=== PATIENT | female | born 1965 | race Caucasian/White ===

== ENCOUNTER → 2017-06-28 | Outpatient (CLI) | payer OTHER | LOC: CARD 14:22 | PROVIDERS: ATTEND Neurological Surgery | DX: I65.22 Occlusion and stenosis of left carotid artery (principal) | CPT/HCPCS: 93880 ==

== ENCOUNTER → 2017-07-21 | Outpatient (CLI) | payer OTHER ==
--- NOTE | 2017-07-23 09:00 | Diagnostic Imaging Report ---
Examination: MRI BRAIN WITHOUT CONTRAST History: Right arm and finger numbness. New onset headaches. Comparison studies: None Technique: Sagittal T2; axial DWI, FLAIR, GRE or SWI, T1, Coronal FLAIR. Intravenous contrast: None Findings: Scalp: No abnormal signal. No masses. Bone marrow: Normal in signal intensity. Brain volume: Adequate for age. No volume loss. Ventricles: Normal in size and configuration. No hydrocephalus. Extra-axial spaces: No abnormalities. Parenchyma: There are patchy areas of T2/FLAIR hyperintensity in the periventricular and subcortical white matter and more confluent area in the pontine white matter, nonspecific. A chronic lacunar infarct is demonstrated in the left centrum semiovale. No masses, hemorrhage, or acute vascular insults. Suprasellar and sellar region: No abnormalities. Craniocervical junction: No abnormalities. The foramen magnum is patent. No Chiari malformations. Vessels: Normal flow-voids in the arteries and sinuses. Additional findings:None. IMPRESSION: 1. No acute intracranial abnormal. 2. Mild chronic microvascular ischemic change. 3. Chronic lacunar infarct in the left centrum semiovale. Signed by: Dr. Shirley Azul M.D. on 07/23/2017 8:57 AM
== END ==
LOC: MRI 14:09
PROVIDERS: ATTEND Neurological Surgery
DX: I63.9 Cerebral infarction, unspecified (principal)
CPT/HCPCS: 70551

== ENCOUNTER → 2017-10-02 | Day surgery (SDC) | payer OTHER ==
[2017-09-28 13:12] LABS: BASOPHILS % 0.2 % (0.0-1.0); EOSINOPHILS % 0.2 % (0.0-6.0); HEMATOCRIT 37.4 % (34.2-44.1); HEMOGLOBIN 12.1 g/dL (12.0-16.0); LYMPHOCYTES # (AUTO) 2.7 (1.0-3.2); LYMPHOCYTES % 28.3 % (18.0-39.1); MEAN CORPUSCULAR HEMOGLOBIN 26.3 pg (28-32); MEAN CORPUSCULAR HGB CONC 32.4 g/dL (31-35); MEAN CORPUSCULAR VOLUME 81.3 fL (81-99); MONOCYTES # (AUTO) 0.6 (0.2-0.8); MONOCYTES % 6.2 % (4.4-11.3); NEUTROPHILS # (AUTO) 6.1 (2.1-6.9); NEUTROPHILS % 64.6 % (38.7-80.0); PLATELET COUNT 156 x10e3/uL (140-360); RED CELL DISTRIBUTION WIDTH 15.4 % (11.7-14.4)
--- NOTE | 2017-09-29 13:00 | Diagnostic Imaging Report ---
PROCEDURE: X-RAY CHEST, TWO VIEWS COMPARISON: None. INDICATIONS: PREOPERATIVE CHEST XRAY FOR COLON SURGERY FINDINGS: LUNGS: No consolidations or edema. PLEURA: No effusions or pneumothorax. HEART \T\ MEDIASTINUM: The heart is within normal size-limits. Tortuosity and atherosclerotic calcification of the thoracic aorta. Hazy opacity along the left heart border likely reflects prominent epicardial fat. BONES \T\ SOFT TISSUES: No acute findings. CONCLUSION: No acute cardiopulmonary abnormality. Dictated by: Jurgen Echevarria M.D. on 09/29/2017 at 13:03 Electronically approved by: Jurgen Echevarria M.D. on 09/29/2017 at 13:03
[~2017-10-02] MED LIST: ALLOPURINOL300 MG PO; ALOGLIPTIN PO; ASPIRIN325 MG PO; CLONAZEPAM0.5 MG PO; CLOPIDOGREL75 MG PO; FENTANYL CITRATE/PF 100MCG/2 ML INJ ONE; FOLIC ACID1 MG PO; HYDROXYZINE HCL25 MG PO; HYOSCYAMINE SULFATE 0.5 MG/ML AMP ONE; LEVEMIR100 UNIT/1 SQ; LIDOCAINE HCL 2% LOCAL INJ 5 ML SDV VIAL INJ ONE; LISINOPRIL10 MG PO; METFORMIN HCL500 MG PO; METOPROLOL TART50 MG PO; MIDAZOLAM HCL 2 MG/2 ML VIAL ONE; NEXIUM OTC PO; NOVOLOG MI100 UNIT/1 SQ; PAROXETINE HCL20 MG PO; PROAIR HFA INH8.5 GM INH; PROPOFOL IV EMULSION 10 MG/ML 50 ML VIAL ONE; SPIRONOLACTONE25 MG PO; VITAMIN B-121000 MCG PO
--- OUTSIDE RECORDS SUMMARY | 2017-10-02 06:06 | XMS REPORT | Clinical Summary ---
Author Author [facility] Organization [facility] Address Unknown Phone Unavailable Care Team Providers Care Packaging Engineer Name Role Phone Deven Arguello MD PCP Allergies Active Allergy Reactions Severity Noted Date Comments Adhesive Tape-Silicones Dermatitis, Rash Medium 01/11/2017 Isosorbide 04/11/2017 Current Medications Prescription Sig. Disp. Refills Start End Date Status Date alendronate (FOSAMAX) 70 TAKE 1 TABLET ONCE A WEEK 1 11/13/19 Active MG tablet ON EMPTY STOMACH WITH 8 17 OZ OF WATER AND REMAIN UPRIGHT FOR 30 MINUTES.pt takes on allopurinol (ZYLOPRIM) Take 300 mg by mouth once 2 11/13/19 Active 300 MG tablet daily. 17 clopidogrel (PLAVIX) 75 Take 75 mg by mouth once 2 12/31/19 Active mg tablet daily. 17 metFORMIN (GLUCOPHAGE) Take 1,000 mg by mouth 2 2 12/09/19 Active 1,000 mg tablet (two) times a day with 17 meals. metoprolol tartrate Take 200 mg by mouth 2 2 10/21/19 Active (LOPRESSOR) 100 mg tablet (two) times a day. 17 PARoxetine (PAXIL) 20 MG Take 20 mg by mouth once 2 12/31/19 Active tablet daily. 17 spironolactone Take 25 mg by mouth once 2 11/13/19 Active (ALDACTONE) 25 MG tablet daily. 17 aspirin (ECOTRIN) 81 MG Take 81 mg by mouth Active enteric coated tablet daily. lisinopril Take 10 mg by mouth Active (PRINIVIL,ZESTRIL) 10 mg daily. tablet clonAZEPAM (KlonoPIN) 0.5 Take 0.5 mg by mouth 2 Active MG tablet (two) times a day as needed for seizures. cyanocobalamin, vitamin Place 1 tablet under the Active B-12, (VITAMIN B-12) tongue daily. 1,000 mcg tablet, sublingual insulin DETEMIR (LEVEMIR Inject 100 Units under Active FLEXTOUCH U-100 INSULN) the skin nightly. 100 unit/mL (3 mL) insulin pen folic acid (FOLVITE) 1 MG Take 1 mg by mouth daily. Active tablet albuterol (PROAIR Inhale 2 puffs every 6 Active HFA,PROVENTIL (six) hours as needed for HFA,VENTOLIN HFA) 90 wheezing. mcg/actuation inhaler esomeprazole (NexIUM) 20 Take 20 mg by mouth daily Active MG capsule before breakfast. alogliptin 12.5 mg tablet Take 1 tablet by mouth Active daily. fluticasone (FLONASE) 50 2 sprays by Each Nare Active mcg/actuation nasal spray route daily. amLODIPine (NORVASC) 5 mg Take 5 mg by mouth once 3 12/31/19 Discontin tablet daily. 17 18 ued atorvastatin (LIPITOR) 40 Take 40 mg by mouth 1 11/13/19 02/01/20 Discontin MG tablet nightly. 17 17 ued glipiZIDE (GLUCOTROL) 10 TAKE 1 TABLET BY MOUTH 2 11/13/19 08/24/19 Discontin MG tablet TWICE A DAY BEFORE MEALS. 17 18 ued pantoprazole (PROTONIX) Take 40 mg by mouth 02/01/20 Discontin 40 MG EC tablet daily. 17 ued insulin GLARGINE (LANTUS) Inject 50 Units under the 08/24/19 Discontin 100 unit/mL injection skin nightly. 18 ued (vial) gemfibrozil (LOPID) 600 Take 600 mg by mouth 2 08/24/19 Discontin MG tablet (two) times a day before 18 ued meals. lisinopril Take 20 mg by mouth 08/24/19 Discontin (PRINIVIL,ZESTRIL) 20 mg daily. 18 ued tablet clonAZEPAM (KlonoPIN) 0.5 Take 0.5 mg by mouth 02/03/20 Discontin MG tablet nightly as needed for 17 ued anxiety or seizures. nicotine (NICODERM CQ) 14 Place 1 patch on the skin 30 patch 0 03/04/20 mg/24 hr daily for 30 days. 17 17 Active Problems Problem Noted Date Chest pain 01/31/2017 Encounters Date Type Specialty Care Team Description 08/29/2017 Telephone Gastroenterology Stephani Mitchell MD 08/23/2017 Emergency General Internal Medicine Jerry Villarreal MD Chest pain, unspecified - Jamie Perez MD type (Primary Dx); 08/26/2017 Deven Agruello MD Dyspnea, unspecified type; Generalized abdominal pain 02/01/2017 Orders Only Radiology Lala, Loyaz 01/31/2017 Emergency General Internal Medicine Matt Davis, Chest pain, unspecified - type (Primary Dx) 02/02/2017 Deven Arguello MD 01/11/2017 Emergency Emergency Medicine Jamie Perez MD Transient cerebral ischemia, unspecified type (Primary Dx) 01/11/2017 Procedure Pass Emergency Medicine after 10/01/2016 Immunizations Name Dates Previously Given Next Due FLUCELVAX QUAD PF (0.5mL 02/02/2017 syringe) Social History Tobacco Use Types Packs/Day Years Used Date Current Every Day Smoker Cigarettes 0.5 Tobacco Cessation: Ready to Quit: No Alcohol Use Drinks/Week oz/Week Comments No Sex Assigned at Date Recorded Not on file Last Filed Vital Signs Vital Sign Reading Time Taken Blood Pressure 145/75 08/26/2017 7:55 AM CDT Pulse 75 08/26/2017 7:55 AM CDT Temperature 36.1 C (97 F) 08/26/2017 7:55 AM CDT Respiratory Rate 19 08/26/2017 7:55 AM CDT Oxygen Saturation 97% 08/26/2017 7:55 AM CDT Inhaled Oxygen - - Concentration Weight 102 kg (223 lb 12.8 oz) 08/23/2017 3:01 PM CDT Height 162.6 cm (5' 4") 08/23/2017 3:01 PM CDT Body Mass Index 38.42 08/23/2017 3:01 PM CDT Plan of Treatment Health Maintenance Due Date Last Done Comments CERVICAL CANCER SCREENING 1986 BREAST CANCER SCREENING 11/21/2015 COLON CANCER SCREENING 11/21/2015 SHINGRIX VACCINE (#1) 11/21/2015 INFLUENZA VACCINE 11/29/2017 02/02/2017 Procedures Procedure Name Priority Date/Time Associated Diagnosis Comments ECHOCARDIOGRAM 2D Routine 08/24/2017 Results for this COMPLETE W MMODE SPECTRAL 8:28 AM CDT procedure are in the [facility]OR [facility]ER (92005) results section. CV STRESS TEST NUCLEAR Routine 02/02/2017 Results for this CARDIO 1:22 PM CDT procedure are in the results section. ECHOCARDIOGRAM 2D Routine 02/01/2017 Results for this COMPLETE W MMODE SPECTRAL 3:36 PM CDT procedure are in the COLOR DOPPLER (84384) results section. after 10/01/2016 Results * POC glucose (08/26/2017 6:40 AM) Only the most recent of 19 results within the time period is included. Component Value Ref Range POC glucose 224 (H) 65 - 100 mg/dL Comment: Meter ID: [id number] Interdisciplinary Professor: Melly Grant Specimen Performing Laboratory [facility] [address] [place] [address] * Estimated GFR (08/26/2017 5:06 AM) Only the most recent of 9 results within the time period is included. Component Value Ref Range GFR Non Af Amer 66 mL/min/1.73 m2 GFR Af Amer 80 mL/min/1.73 m2 Comment: Chronic kidney disease: <60 mL/min/1.73m2 Kidney failure: <15 mL/min/1.73m2 The estimated GFR is calculated from the IDMS-traceable Modification of Diet in Renal Disease Equation. The accuracy of the calculation is poor when the creatinine is normal. Calculated values >90 mL/min/1.73m2 are not reported. This equation has not been validated in children (<18 years), women, the elderly (>70 years), or ethnic groups other than Caucasians and Americans. Specimen Performing Laboratory Plasma specimen [facility] [address] [place] [address] * CBC with platelet and differential (08/26/2017 5:06 AM) Only the most recent of 9 results within the time period is included. Component Value Ref Range WBC 8.3 4.2 - 11.0 k/uL RBC 4.40 4.04 - 5.86 m/uL HGB 11.6 11.5 - 15.3 g/dL HCT 37.5 34.0 - 45.0 % MCV 85.2 80.0 - 98.0 fL MCH 26.4 (L) 27.0 - 34.0 pg MCHC 30.9 (L) 31.5 - 36.5 g/dL RDW - SD 45.1 37.0 - 51.0 fL MPV 13.9 (H) 7.4 - 10.4 fL Platelet count 143 (L) 150 - 400 k/uL Nucleated RBC 0.00 /100 WBC Neutrophils 65.0 36.0 - 66.0 % Lymphocytes 27.0 24.0 - 44.0 % Monocytes 7.1 (H) 0.0 - 6.0 % Eosinophils 0.2 0.0 - 6.0 % Basophils 0.2 0.0 - 1.2 % Immature granulocytes 0.5 0.0 - 1.0 % Specimen Performing Laboratory Blood [facility] [address] [place] [address] * Basic metabolic panel (08/26/2017 5:06 AM) Only the most recent of 3 results within the time period is included. Component Value Ref Range Sodium 137 135 - 150 mEq/L Potassium 4.4 3.5 - 5.0 mEq/L Chloride 101 100 - 109 mEq/L CO2 30 24 - 32 mmol/L Anion gap 6 (L) 7 - 15 mEq/L Comment: Starting from July , anion gap calculation no longer incorporates potassium. Please note the change. BUN 16 7 - 18 mg/dL Creatinine 0.9 0.8 - 1.5 mg/dL Glucose 180 (H) 65 - 100 mg/dL Calcium 8.9 8.6 - 10.7 mg/dL Specimen Performing Laboratory Plasma specimen [facility] [place] [address] * CT Abdomen Pelvis W Contrast (08/25/2017 9:14 PM) Specimen Performing Laboratory [facility] [address] [place] [address] Narrative Examination:CT ABDOMEN PELVIS W CONTRAST Clinical History: abdominal pain Comparison: None. Findings: CT scans are performed using radiation dose reduction techniques.Technical factors are evaluated and adjusted to ensure appropriate moderation of exposure. Automated dose management technology is applied to adjust radiation exposure while achieving a diagnostic quality image. CT scan of the abdomen and pelvis was performed after intravenous contrast. The liver, spleen, pancreas, and adrenal glands are unremarkable. The patient is status post cholecystectomy. The kidneys are within normal limits without hydronephrosis. There is bowel wall thickening noted of the rectosigmoid colon, descending colon , and splenic flexure. No fat stranding is seen. The appendix is not visualized. No small bowel distention is seen. Colonic diverticulosis is seen. Mild anterior abdominal wall subcutaneous varices and mild fat stranding is noted. No free air or fluid is seen. Urinary bladder is unremarkable. The visualized lung bases show mild dependent atelectasis. IMPRESSION: 1. Diffuse bowel wall thickening involving the splenic flexure, descending colon , and rectosigmoid colon most suspicious for colitis. 2. Some mild subcutaneous varices and mild fat stranding in the anterior abdominal and pelvic wall. This is similar to that of the prior study. [id number] Procedure Note [facility], Radiology Results Incoming - 08/25/2017 9:27 PM CDT Examination: CT ABDOMEN PELVIS W CONTRAST Clinical History: abdominal pain Comparison: None. Findings: CT scans are performed using radiation dose reduction techniques. Technical factors are evaluated and adjusted to ensure appropriate moderation of exposure. Automated dose management technology is applied to adjust radiation exposure while achieving a diagnostic quality image. CT scan of the abdomen and pelvis was performed after intravenous contrast. The liver, spleen, pancreas, and adrenal glands are unremarkable. The patient is status post cholecystectomy. The kidneys are within normal limits without hydronephrosis. There is bowel wall thickening noted of the rectosigmoid colon, descending colon , and splenic flexure. No fat stranding is seen. The appendix is not visualized. No small bowel distention is seen. Colonic diverticulosis is seen. Mild anterior abdominal wall subcutaneous varices and mild fat stranding is noted. No free air or fluid is seen. Urinary bladder is unremarkable. The visualized lung bases show mild dependent atelectasis. IMPRESSION: 1. Diffuse bowel wall thickening involving the splenic flexure, descending colon, and rectosigmoid colon most suspicious for colitis. 2. Some mild subcutaneous varices and mild fat stranding in the anterior abdominal and pelvic wall. This is similar to that of the prior study. [id number] * Lipase level (08/25/2017 5:08 AM) Only the most recent of 3 results within the time period is included. Component Value Ref Range Lipase 480 (H) 65 - 230 U/L Specimen Performing Laboratory Plasma specimen [facility] [address] [place] [address] * Echocardiogram complete w contrast and 3D if needed (08/24/2017 8:28 AM) Component Value Ref Range Ao Root Diameter 2.69 cm AoV Area, Vmax 2.35 cm2 AoV Area, VTI 2.38 cm2 AoV Mean PG 5.47 mmHg AoV Peak PG 11.73 mmHg AoV Vmax 1.81 m/s AoV VTI 0.33 m IVS,d 1.02 0.6 - 1.2 cm IVS/LVPW,2D 1.02 Left Atrium Dimension 4.64 cm Anterior LV,d 4.93 cm LV EF,2D 62.61 % LV,s 3.55 cm LVOT area 3.49 cm2 LVOT Diam,S 2.11 cm LVOT Vmax 1.15 m/s LVOT VTI 0.25 m LVPWD,d 1.00 cm TR Vpeak 1.50 mm/s MV E A ratio 1.20 mmHg TR pk grad 9.05 mmHg MR Vmax 4.76 m/s E wave decelartion time 219.92 msec MV Peak A Erasmo 1.26 m/s MV valve area p 1/2 3.45 cm2 method MV Peak E Erasmo 1.50 m/s MV stenosis pressure 1/2 63.78 ms time AV LVOT peak gradient 5.31 mmHg Ao Root Diameter 2.69 cm MV mean gradient 5.14 mmHg LV SYS VOL 52.72 ml LV RUSSO VOL 114.49 ml LV SV Teich 2D 61.77 ml LV Vol s Teich PSAX 52.72 ml LVOT CO 5.72 l/min LVOT HR for LVOT CO 66.31 bpm MR peak grad 12.32 mmHg MV Vmax 1.76 m MV VTI Tips 0.48 m AoV Vmn 1.09 IVS s 2D 1.21 LV FS Teich 2D 27.96 MV AE ratio 0.84 LV FS Cube 2D 27.96 LVOT Vmn 0.79 Aov area Vmn 2.40 cm2 LVOT mean grad 2.77 mmHg MAX Pred HR 168.24 85 of MPHR 143.00 Calc MPHR 168.24 bpm IVS pct thck PLAX 19.15 % LV SV Cube 2D 75.07 ml LV vol d cube 2D 119.90 ml LV vol s cube 2D 44.83 ml LVPW pct thck PLAX 40.24 % LVPW s PLAX 1.40 cm MV Decel slope 6.84 m/s2 Pred Exer Dur R1 8.80 Pred METS R1 7.97 Velocity Ratio (V1/V2) 0.64 m/s EF 53.95 % E/A ratio 1.19 Specimen Performing Laboratory [facility] [address] [place] [address] Narrative There is mild left ventricular concentric hypertrophy. Left Ventricular ejection fraction is 50 - 55%. Left atrium size is mildly dilated. No pericardial effusion There is severe sclerosis of the aortic valve leaflets. The mitral valve appears thickened. There is mild mitral valve regurgitation. Spectral Doppler shows impaired relaxation pattern of left ventricular diastolic filling. Trace aortic regurgitation. * Troponin (08/24/2017 5:22 AM) Only the most recent of 12 results within the time period is included. Component Value Ref Range Troponin <0.01 0.00 - 0.60 ng/mL Comment: 0.11 - 1.49 ng/ml May indicate increased risk of acute coronary syndrome. >=1.5 ng/ml Consistent with acute myocardial infarction. The diagnostic value of a single normal or non-diagnostic result is questionable. Serial samples at 2-6 hour intervals are required to rule out acute myocardial injury. Specimen Performing Laboratory Plasma specimen [facility] [address] [place] [place] [address] * Comprehensive metabolic panel (08/24/2017 5:22 AM) Only the most recent of 6 results within the time period is included. Component Value Ref Range Sodium 136 135 - 150 mEq/L Potassium 4.4 3.5 - 5.0 mEq/L Chloride 104 100 - 109 mEq/L CO2 23 (L) 24 - 32 mmol/L Anion gap 9 7 - 15 mEq/L Comment: Starting from July , anion gap calculation no longer incorporates potassium. Please note the change. BUN 13 7 - 18 mg/dL Creatinine 0.8 0.8 - 1.5 mg/dL Glucose 366 (H) 65 - 100 mg/dL Calcium 8.8 8.6 - 10.7 mg/dL Protein 6.7 6.3 - 8.2 g/dL Albumin 2.7 (L) 3.2 - 5.0 g/dL A/G ratio 0.7 0.7 - 3.8 Alkaline phosphatase 145 (H) 30 - 120 U/L AST 18 15 - 37 U/L ALT 19 (L) 30 - 65 U/L Total bilirubin 0.3 0.2 - 1.2 mg/dL Specimen Performing Laboratory Plasma specimen [facility] [address] [place] [address]. [place] [address] * Partial thromboplastin time, activated (08/24/2017 2:06 AM) Only the most recent of 4 results within the time period is included. Component Value Ref Range PTT 29.7 23.0 - 36.0 sec Comment: PTT therapeutic range for unfractionated heparin is 61.0-112.0 seconds which corresponds to Anti-Xa 0.3-0.7 U/ml. Note: Change in Panic Value The PTT Panic Value is changing from 110 sec. to 100 sec. due to new instrumentation and reagents. Correlation studies have been performed to validate this result. Specimen Performing Laboratory Blood [facility] [address] [place] [address]. [place] [id number] * Prothrombin time with INR (08/24/2017 2:06 AM) Only the most recent of 5 results within the time period is included. Component Value Ref Range Prothrombin time 12.9 12.0 - 15.0 sec INR 0.96 0.92 - 1.12 Comment: For patients on anticoagulant therapy, reference ranges below: Indication: INR Value Treatment of Venous Thrombosis, 2.0-3.0 pulmonary emboli, or prophylaxis of a venous thrombosis, or systemic emboli. High dose, high risk patients 3.0-4.5 with mechanical valves. NOTE: INR values over 3.0 are sometimes associated with gastrointestinal hemorrhage, especially values over 4.0. Specimen Performing Laboratory Blood [facility] [address] [place] [address]. [place] [address] * T3, free (08/24/2017 2:06 AM) Only the most recent of 2 results within the time period is included. Component Value Ref Range T3, free 2.56 2.18 - 3.98 pmol/L Specimen Performing Laboratory Plasma specimen [facility] [address] [place] [address]. [place] [address] * Thyroid stimulating hormone (08/24/2017 2:06 AM) Only the most recent of 2 results within the time period is included. Component Value Ref Range TSH 0.86 0.38 - 4.82 uIU/mL Specimen Performing Laboratory Plasma specimen [facility] [address] [facility] [address] * B natriuretic peptide (08/24/2017 2:06 AM) Only the most recent of 5 results within the time period is included. Component Value Ref Range BNP 192 (H) 0 - 100 pg/mL Specimen Performing Laboratory Blood [facility] [address] [place] [address]. [place] [address] * Magnesium level (08/24/2017 2:06 AM) Only the most recent of 2 results within the time period is included. Component Value Ref Range Magnesium 1.90 1.60 - 2.40 mg/dL Specimen Performing Laboratory Plasma specimen [facility] [address] [place] [id number] * Hemoglobin A1c (08/24/2017 2:06 AM) Only the most recent of 2 results within the time period is included. Component Value Ref Range Hemoglobin A1C 8.5 (H) 4.0 - 6.0 % Comment: Less than 6% - Goal of therapy for Type II Diabetes Less than 7%- Goal of therapy for Type I Diabetes Less than 8%- Acceptable control for Type I or Type II Diabetes Greater than 8%- Unacceptable control; action indicated. (A DA94) Specimen Performing Laboratory Blood [facility] [address] [place] [address]. [place] [address] * Lipid panel (08/24/2017 2:06 AM) Only the most recent of 2 results within the time period is included. Component Value Ref Range Cholesterol 266 (H) 120 - 200 mg/dL Triglycerides 462 (H) 50 - 150 mg/dL HDL cholesterol 30 (L) 40 - 60 mg/dL LDL cholesterol 118Comment: Result obtained by direct LDL mg/dL measurement Lipid panel See below interpretation Comment: Total Cholesterol (mg/dL) LDL Cholesterol (mg/dL) <200 Desirable <100 Optimal 200-239 Borderline-high 100-129 Near or above optimal >=240 High 130-159 Borderline-high 160-189 High >=190 Very high HDL Cholesterol (mg/dL) Triglycerides (mg/dL) <40 Low <150 Normal >=60 High 150-199 Borderline-high 200-499 High >=500 Very high Risk Catergories that modify LDL goals. Risk Catergories LDL goal (mg/dL) CHD and CHD risk equivalent <100 (10-year risk >20%) Multiple (2+) risk factors <130 (10-year risk=<20%) 0-1 risk factors <160 (<10-year risk) Defining levels of lipids in metabolic syndrome Triglycerides >=150 mg/dL HDL Cholesterol Men <40 mg/dL Women <50 mg/dL Non-HDL cholesterol is a second target for therapy in persons with high triglycerides (>=200 mg/dL) Specimen Performing Laboratory Plasma specimen [facility] [address] [place] [place] [address] * CT Angiogram Pe Chest (08/23/2017 9:26 PM) Specimen Performing Laboratory [facility] [address] [place] [address] Narrative EXAM: CT ANGIOGRAM PE CHEST CLINICAL HISTORY: Sinus Tachycardia, D dimer TECHNIQUE:CT angiographic images of the chest were obtained during intravenous administration of iodinated contrast.Computerized, reformatted images and 3-D MIP images were obtained and archived (per CT pulmonary embolism protocol). CT scans are performed using radiation dose reduction techniques (iterative reconstruction and/or automated exposure control). Technical factors are evaluated and adjusted to ensure appropriate moderation of exposure. Automated dose management technology is applied to adjust radiation exposure while achieving a diagnostic quality image. COMPARISON:Chest radiograph, same day FINDINGS: Pulmonary arteries: Diagnostic quality of study is adequate for the evaluation of pulmonary embolism. There is no evidence of acute or chronic pulmonary embolism. No evidence of right heart strain. The main pulmonary artery measures 23 mm in luminal diameter. Aorta:Atherosclerotic changes in the aorta and coronary arteries. No aneurysm. Mediastinum and derick:No pathological adenopathy in the derick, axillary, or mediastinum.No mediastinal mass or hematoma. Heart and pericardium:Heart size is normal.No pericardial effusion. Lungs:Clear airways. 5.2 mm nodule identified within the right upper lobe ( image 145, series 2). Scattered paraseptal blebs. Dependent atelectasis.No pleural effusion, pleural thickening, or pneumothorax. Other: Thyroid gland is unremarkable.Esophagus is patent. Chest wall:Unremarkable. Upper abdomen:No focal abnormality detected with limited evaluation. Bones:No evidence for acute osseous injury. IMPRESSION: 1.Negative CTA examination for pulmonary embolism. 2.5.2 mm nodule identified within the right upper lobe (image 145, series 2) . [employer] SOLID PULMONARY NODULE RECOMMENDATIONS Nodule size: Less than or equal to 4 mm *Low risk patients: No follow-up needed *High risk patients: Follow-up in 12 months and if no change, no further imaging Nodule size: Greater than 4-6 mm *Low risk patients: Follow-up in 12 months if no change, no further imaging needed *High risk patients: Initial follow-up CT at 6-12 months and then at 18-24 months if no change Nodule size: Greater than 6-8 mm *Low risk patients: Initial follow-up CT at 6-12 months and then at 18-24 months if no change *High risk patients: Initial follow-up CT at 3-6 months and then at 9-12 and 24 months if no change Nodule size: Greater than 8 mm Either low or high risk patients: *Follow-up CT at 3, 9, and 24 months, OR *PET and/or biopsy Low risk patients: *Minimal or absent history of smoking and/or other known risk factors High risk patients: *Greater than 20 [id number] history of smoking, or equivalent second hand exposure *Personal history of cancer or family history of lung cancer *Occupational exposure *Chronic interstitial/fibrotic lung disease Young patient: Primary lung cancer is rare in persons under 35 years of age, and the risks from radiation exposure are greater than in the older population. Therefore, unless there is a known primary cancer, multiple follow-up CT studies for small incidentally detected nodules are not recommended. In these cases, a single low- dose follow-up CT scan in 6-12 months should be considered. [id number] Procedure Note [facility], Radiology Results Incoming - 08/23/2017 9:37 PM CDT EXAM: CT ANGIOGRAM PE CHEST CLINICAL HISTORY: Sinus Tachycardia, D dimer TECHNIQUE: CT angiographic images of the chest were obtained during intravenous administration of iodinated contrast. Computerized, reformatted images and 3-D MIP images were obtained and archived (per CT pulmonary embolism protocol). CT scans are performed using radiation dose reduction techniques (iterative reconstruction and/or automated exposure control). Technical factors are evaluated and adjusted to ensure appropriate moderation of exposure. Automated dose management technology is applied to adjust radiation exposure while achieving a diagnostic quality image. COMPARISON: Chest radiograph, same day FINDINGS: Pulmonary arteries: Diagnostic quality of study is adequate for the evaluation of pulmonary embolism. There is no evidence of acute or chronic pulmonary embolism. No evidence of right heart strain. The main pulmonary artery measures 23 mm in luminal diameter. Aorta: Atherosclerotic changes in the aorta and coronary arteries. No aneurysm. Mediastinum and derick: No pathological adenopathy in the derick, axillary, or mediastinum. No mediastinal mass or hematoma. Heart and pericardium: Heart size is normal. No pericardial effusion. Lungs: Clear airways. 5.2 mm nodule identified within the right upper lobe ( image 145, series 2). Scattered paraseptal blebs. Dependent atelectasis. No pleural effusion, pleural thickening, or pneumothorax. Other: Thyroid gland is unremarkable. Esophagus is patent. Chest wall: Unremarkable. Upper abdomen: No focal abnormality detected with limited evaluation. Bones: No evidence for acute osseous injury. IMPRESSION: 1. Negative CTA examination for pulmonary embolism. 2. 5.2 mm nodule identified within the right upper lobe (image 145, series 2) . [employer] SOL[employer] PULMONARY NODULE RECOMMENDATIONS Nodule size: Less than or equal to 4 mm * Low risk patients: No follow-up needed * High risk patients: Follow-up in 12 months and if no change, no further imaging Nodule size: Greater than 4-6 mm * Low risk patients: Follow-up in 12 months if no change, no further imaging needed * High risk patients: Initial follow-up CT at 6-12 months and then at 18-24 months if no change Nodule size: Greater than 6-8 mm * Low risk patients: Initial follow-up CT at 6-12 months and then at 18-24 months if no change * High risk patients: Initial follow-up CT at 3-6 months and then at 9-12 and 24 months if no change Nodule size: Greater than 8 mm Either low or high risk patients: * Follow-up CT at 3, 9, and 24 months, OR * PET and/or biopsy Low risk patients: * Minimal or absent history of smoking and/or other known risk factors High risk patients: * Greater than 20 [id number]-[id number] history of smoking, or equivalent second hand exposure * Personal history of cancer or family history of lung cancer * Occupational exposure * Chronic interstitial/fibrotic lung disease Young patient: Primary lung cancer is rare in persons under 35 years of age, and the risks from radiation exposure are greater than in the older population. Therefore, unless there is a known primary cancer, multiple follow-up CT studies for small incidentally detected nodules are not recommended. In these cases, a single low- dose follow-up CT scan in 6-12 months should be considered. [facility]-[id number] * ECG 12 lead (08/23/2017 8:18 PM) Only the most recent of 7 results within the time period is included. Component Value Ref Range Ventricular rate 83 Atrial rate 83 VT interval 174 QRSD interval 76 QT interval 392 QTC interval 460 P axis 1 48 QRS axis 1 43 T wave axis 58 EKG impression Normal sinus rhythm-Normal ECG-In automated comparison with ECG of 23-AUG-2017 17:59,-No significant change was found- Specimen Performing Laboratory [facility] [address] [address] [place] [address] * Lactic acid level, SEPSIS - Now and repeat 2x every 3 hours (08/23/2017 7:22 PM) Only the most recent of 2 results within the time period is included. Component Value Ref Range Lactic acid 1.2 0.5 - 2.2 mmol/L Specimen Performing Laboratory Blood [facility] [address] [facility] [place] [address] * Myoglobin (08/23/2017 7:22 PM) Component Value Ref Range Myoglobin 37.0 9.0 - 82.5 ng/mL Specimen Performing Laboratory Plasma specimen [facility] [address] [facility] [place] [address] * Urinalysis screen and microscopy, with reflex to culture (08/23/2017 12:10 PM) Only the most recent of 3 results within the time period is included. Component Value Ref Range Specimen site Clean catch Color, UA Yellow Appearance, UA Clear Specific gravity, UA 1.014 1.001 - 1.035 pH, UA 6.0 5.0 - 8.5 Protein, UA 2+ (A) Negative Glucose, UA 3+ (A) Negative Ketones, UA Negative Negative Bilirubin, UA Negative Negative Blood, UA Negative Negative Nitrite, UA Negative Negative Urobilinogen, UA Negative <2.0 Leukocyte esterase, UA Negative Negative Epithelial cells, UA Few /HPF WBC, UA 1 0 - 5 /HPF RBC, UA 1 0 - 5 /HPF Bacteria, UA None seen None seen Yeast, UA None seen Yeast with pseudohyphae, None seen UA Specimen Performing Laboratory Urine [facility] [address] [place] [address] * Urine culture (08/23/2017 12:10 PM) Only the most recent of 3 results within the time period is included. Component Value Ref Range Urine culture SEE COMMENTComment: Bacteriuria screen negative. Specimen Performing Laboratory [facility] [address] [place] [address] * XR Chest 1 Vw (08/23/2017 12:04 PM) Specimen Performing Laboratory [facility] [address] [place] [address] Narrative EXAMINATION:XR CHEST 1 VW CLINICAL HISTORY:sob XR CHEST 1 VWimages are submitted COMPARISON:01/31/2017 FINDINGS: The cardiac silhouette is normal in size. The pulmonary vasculature is within normal limits. The lung zones have no focal area of consolidation. There is no pleural effusion or pneumothorax. IMPRESSION: 1. There is no acute cardiopulmonary disease. [id number] Procedure Note Interface, Radiology Results Incoming - 08/23/2017 12:13 PM CDT EXAMINATION: XR CHEST 1 VW CLINICAL HISTORY: sob XR CHEST 1 VW images are submitted COMPARISON: 01/31/2017 FINDINGS: The cardiac silhouette is normal in size. The pulmonary vasculature is within normal limits. The lung zones have no focal area of consolidation. There is no pleural effusion or pneumothorax. IMPRESSION: 1. There is no acute cardiopulmonary disease. [id number] * Creatine kinase, total (CPK) (08/23/2017 11:56 AM) Only the most recent of 2 results within the time period is included. Component Value Ref Range Creatine kinase 60 (L) 61 - 224 U/L Specimen Performing Laboratory Plasma specimen [facility] [address] [place] [address] * ECG ED Preliminary Interpretation - NOT AN ORDER (08/23/2017 11:27 AM) Only the most recent of 3 results within the time period is included. Narrative Jamie Perez MD 08/26/20171:24 AM ECG ED Preliminary Interpretation - Not an Order Performed by: JERRY VILLARREAL Authorized by: JERRY VILLARREAL ECG reviewed by ED Physician in the absence of a factory maintenance technician: yes Interpretation: Interpretation: normal Rate: ECG rate:79 ECG rate assessment: normal Rhythm: Rhythm: sinus rhythm Ectopy: Ectopy: none QRS: QRS axis:Normal Conduction: Conduction: normal ST segments: ST segments:Normal T waves: T waves: inverted Inverted:III * CV stress test (02/02/2017 1:22 PM) Component Value Ref Range Resting HR 85 Resting BP 146 Peak MET Achieved 1.0 Protocol Name LEXISCAN Time in Exercise Phase 00:00:56 Max Systolic BP 146 Max Diastolic BP 75 Max Heart Rate 108 Max Predicted Heart Rate 169 Target HR Formula (220 - Age)*85% Arrhy During Ex none ECG Interp Before EX Normal ECG Interp During Ex none Ex Summary Comment Equivocal stress test Chest Pain Statement none Overall HR Response to appropriate Exercise Overall BP Response To normal resting BP - appropriate response Exercise Reason for Termination Protocol Completed... Stress Test Impression -Chest pressure, shortness of breath experienced during test, resolved by end of- protocol.--Waveform interpreted in report associated with image study. No interpretation is provided as part of this Stress ECG report.-Electronically Signed By Emily PERERA, Lucio ([id number]), photographic editor Maico Wilson ([id number]) on 02/03/2017 9:09:36 AM Target HR 143.65 bpm Specimen Performing Laboratory [facility] [address] [address] [place] [address] Addenda Addendum by Lucio Diaz MD on 02/17/2017 1:20 PM * CV myocardial perfusion (02/02/2017 1:22 PM) Component Value Ref Range Target HR 143.65 bpm Resting HR 85 BPM Resting BP 146/75 mmHg Post peak HR 108 bpm Percent HR 75.18 % Post peak BP 146/75 mmHg Specimen Performing Laboratory [facility] [address] [place] [address] Narrative Probably abnormal left ventricular perfusion. Probably abnormal left ventricular perfusion. No chest pain No exercise induced ST-T changes. No arrhythmias with exercise. Normal heart rate and BP response. Myoview report Breast Anterior soft tissue Diaphragmatic attenuation artifact Can not rule out minimal small inferio lateral basal ischemic defect due to attenuation artifact Normal wall motion EF 67% * CT Abdomen Pelvis Wo Contrast (02/01/2017 8:07 PM) Specimen Performing Laboratory [facility] [address] [place] [address] Narrative Examination:CT ABDOMEN PELVIS WO CONTRAST Clinical History: ABDOMINAL PAIN Comparison: None. Findings: CT scans are performed using radiation dose reduction techniques.Technical factors are evaluated and adjusted to ensure appropriate moderation of exposure. Automated dose management technology is applied to adjust radiation exposure while achieving a diagnostic quality image. CT scan of abdomen and pelvis was performed without intravenous contrast. The liver, spleen, pancreas, and adrenal glands are unremarkable. The patient is status post cholecystectomy. The kidneys are within normal limits without hydronephrosis or urinary calculus. Colonic diverticuli are noted. Mild bowel wall prominence or thickening noted of the rectosigmoid colon is noted but is not well-distended. No bowel distention is seen. The appendix is not visualized. No free air or fluid is seen. Urinary bladder is unremarkable. The visualized lung bases are clear. IMPRESSION: 1. Mild bowel wall prominence with thickening of the rectosigmoid colon may be related to incomplete distention versus mild inflammation. Clinical correlation is recommended. [facility]-[id number] Procedure Note Interface, Radiology Results Incoming - 02/01/2017 9:28 PM CDT Examination: CT ABDOMEN PELVIS WO CONTRAST Clinical History: ABDOMINAL PAIN Comparison: None. Findings: CT scans are performed using radiation dose reduction techniques. Technical factors are evaluated and adjusted to ensure appropriate moderation of exposure. Automated dose management technology is applied to adjust radiation exposure while achieving a diagnostic quality image. CT scan of abdomen and pelvis was performed without intravenous contrast. The liver, spleen, pancreas, and adrenal glands are unremarkable. The patient is status post cholecystectomy. The kidneys are within normal limits without hydronephrosis or urinary calculus. Colonic diverticuli are noted. Mild bowel wall prominence or thickening noted of the rectosigmoid colon is noted but is not well-distended. No bowel distention is seen. The appendix is not visualized. No free air or fluid is seen. Urinary bladder is unremarkable. The visualized lung bases are clear. IMPRESSION: 1. Mild bowel wall prominence with thickening of the rectosigmoid colon may be related to incomplete distention versus mild inflammation. Clinical correlation is recommended. [id number] * Echocardiogram complete w contrast and 3D if needed (02/01/2017 3:36 PM) Component Value Ref Range Velocity Ratio (V1/V2) 0.69 m/s IVS,d 0.93 0.6 - 1.2 cm EF 57.94 % LVPWD,d 0.87 cm AoV Mean PG 6.79 mmHg AV LVOT peak gradient 6.52 mmHg MV mean gradient 2.84 mmHg MV valve area p 1/2 2.50 cm2 method E/A ratio 0.92 E wave decelartion time 303.34 msec LVOT Diam,S 2.00 cm LVOT area 3.14 cm2 LVOT Vmax 1.28 m/s LVOT VTI 0.26 m AoV Peak PG 13.14 mmHg MV Peak E Erasmo 1.18 m/s MV stenosis pressure 1/2 87.97 ms time MV Peak A Erasmo 1.28 m/s AoV Area, Vmax 2.16 cm2 AoV Area, VTI 2.11 cm2 AoV Vmax 1.86 m/s IVS/LVPW,2D 1.07 Left Atrium Dimension 4.72 cm Anterior LV,d 5.31 cm LV,s 3.67 cm TR Vpeak 1.67 mm/s MV E A ratio 0.92 mmHg TR pk grad 11.15 mmHg MR peak grad 6.22 mmHg Ao Root Diameter 2.50 cm LV SYS VOL 57.12 ml LV RUSSO VOL 135.81 ml LV SV Teich 2D 78.69 ml LV Vol s Teich PSAX 57.12 ml LVOT CO 5.46 l/min LVOT HR for LVOT CO 67.59 bpm MV Vmax 1.25 m MV VTI Tips 0.39 m AoV Vmn 1.23 IVS s 2D 1.03 LV FS Cube 2D 30.80 LV FS Teich 2D 30.80 Ao Root Diameter 2.50 cm AoV VTI 0.38 m LV EF,2D 66.86 % MV AE ratio 1.08 LVOT Vmn 0.80 Aov area Vmn 2.04 cm2 LVOT mean grad 3.08 mmHg MAX Pred HR 168.80 85 of MPHR 143.48 Calc MPHR 168.80 bpm IVS pct thck PLAX 10.64 % LV SV Cube 2D 99.99 ml LV vol d cube 2D 149.54 ml LV vol s cube 2D 49.55 ml LVPW pct thck PLAX 71.01 % LVPW s PLAX 1.48 cm MV Decel slope 3.91 m/s2 Pred Exer Dur R1 8.86 Pred METS R1 8.04 Specimen Performing Laboratory [facility] [address] [place] [address] Narrative Left Ventricular ejection fraction is 45 - 50%. Right ventricular size is normal. Left atrium size is mildly dilated. No pericardial effusion The mitral valve appears thickened. There is moderate sclerosis of the aortic valve leaflets. * Iron level (02/01/2017 5:11 AM) Component Value Ref Range Iron level 75 (L) 76 - 198 ug/dL Specimen Performing Laboratory Blood [facility] [address] [place] [address] * Folate level (02/01/2017 5:11 AM) Component Value Ref Range Folate 9.5 3.4 - 20.0 ng/mL Specimen Performing Laboratory Serum [facility] [address] [place], [place] [address] [place] [address] * Ferritin level (02/01/2017 5:11 AM) Component Value Ref Range Ferritin level 34 10 - 125 ng/mL Specimen Performing Laboratory Serum [facility] [address] [place] [address] [place] [address] * Vitamin B12 level (02/01/2017 5:11 AM) Component Value Ref Range Vitamin B12 749 231 - 931 pg/mL Comment: Significant overlap exists between normal and deficiency states. However, most patients with deficiencies will have Serum B12 <200 pg/mL. Specimen Performing Laboratory Serum [facility] [address] [place] [address] [place] [address] * XR Chest 2 Vw (01/31/2017 5:57 PM) Specimen Performing Laboratory [facility] [address] [place] [address] Narrative EXAMINATION:XR CHEST 2 VW CLINICAL HISTORY:Chest Pain COMPARISON:August 28, 2016 IMPRESSION: 1.Lungs are clear and the heart size is normal. 2.The vessels are not congested. There are no pleural effusions. [id number] Procedure Note Hm Interface, Radiology Results Incoming - 01/31/2017 6:05 PM CDT EXAMINATION: XR CHEST 2 VW CLINICAL HISTORY: Chest Pain COMPARISON: August 28, 2016 IMPRESSION: 1. Lungs are clear and the heart size is normal. 2. The vessels are not congested. There are no pleural effusions. [id number] * MRI Brain Wo Contrast (01/11/2017 2:04 PM) Specimen Performing Laboratory [facility] [address] [place] [address] Narrative EXAMINATION: MRI BRAIN WO CONTRAST CLINICAL HISTORY: aphasiafacial droop COMPARISON:CT brain from June 16, 2015 TECHNIQUE: Multiplanar and multisequence MRI imaging of the brain was obtained without contrast. FINDINGS: There is no evidence of acute infarct, intracranial hemorrhage or mass, hydrocephalus or midline shift. There is a small region of increased T2 and decreased T1 signal intensity which could be from a old infarct in the posterior left frontal lobe. There are mild nonspecific white matter changes. There are small areas of increased T2 signal intensity in the sunil and I can't exclude old infarcts. IMPRESSION: No radiographic findings to definitely account for the patient's acute facial droop. Chronic appearing changes in the brain. [facility]-[id number] Procedure Note Interface, Radiology Results Incoming - 01/11/2017 2:11 PM CDT EXAMINATION: MRI BRAIN WO CONTRAST CLINICAL HISTORY: aphasia facial droop COMPARISON: CT brain from June 16, 2015 TECHNIQUE: Multiplanar and multisequence MRI imaging of the brain was obtained without contrast. FINDINGS: There is no evidence of acute infarct, intracranial hemorrhage or mass, hydrocephalus or midline shift. There is a small region of increased T2 and decreased T1 signal intensity which could be from a old infarct in the posterior left frontal lobe. There are mild nonspecific white matter changes. There are small areas of increased T2 signal intensity in the sunil and I can't exclude old infarcts. IMPRESSION: No radiographic findings to definitely account for the patient's acute facial droop. Chronic appearing changes in the brain. [facility]-[id number] * hCG qualitative, urine screen (01/11/2017 1:47 PM) Component Value Ref Range hCG qualitative, urine Negative Negative Comment: The manufacturers stated sensitivity of HcG test for serum is >/=10 mIU/ml and urine is >/=20mIU/ml. Specimen Performing Laboratory Urine [facility] [address] [place] [address] after 10/01/2016 Insurance Payer Benefit Subscriber ID Type Phone Address Plan / Group [employer] EXCHANGE COL[employer] xxxxxxxxxx Exchange [employer] E EXCHANGE
--- OUTSIDE RECORDS SUMMARY | 2017-10-02 06:06 | XMS REPORT ---
Author Author [facility] Address Unknown Phone Unavailable Care Team Providers Care Aged Or Disabled Care Worker Name Role Phone NATHALIA BALBUENA Unavailable Unavailable LEANDRO ANDRADE Unavailable Unavailable LEANDRO ANDRADE Unavailable Unavailable Problems This patient has no known problems. Allergies, Adverse Reactions, Alerts This patient has no known allergies or adverse reactions. Medications This patient has no known medications. Encounters Start Date/Time End Date/Time Encounter Type Admission Type Attending [facility] [place] Facility Care Department Encounter ID 2017-04-19 16:06:53 2017-04-19 16:06:53 Outpatient [facility] [id number] 2017-04-19 14:57:51 2017-04-19 14:57:51 Outpatient [facility] [id number] 2017-03-28 06:15:20 2017-03-28 06:15:20 Outpatient [facility] [id number] 2017-03-28 00:00:00 2017-03-28 00:00:00 Outpatient [facility] [id number] 2017-03-28 00:00:00 2017-03-28 00:00:00 Outpatient [facility] [id number] 2017-03-16 13:23:58 2017-03-16 13:23:58 Outpatient [facility] [id number] 2017-03-16 00:00:00 2017-03-16 00:00:00 Outpatient [facility] [id number] 2017-03-14 00:00:00 2017-03-14 00:00:00 Outpatient [facility] [id number] 2017-03-13 06:59:35 2017-03-13 06:59:35 Outpatient [facility] [id number] 2017-02-15 00:00:00 2017-02-15 00:00:00 Outpatient [facility] [id number] 2017-01-18 15:59:05 2017-01-18 15:59:05 Outpatient [facility] [id number] 2017-01-18 13:58:06 2017-01-18 13:58:06 Outpatient [facility] [id number] 2016-11-23 09:25:37 2016-11-23 09:25:37 Outpatient [facility] [id number] 2016-10-11 00:00:00 2016-10-11 00:00:00 Outpatient [facility] [id number] 2016-09-13 07:55:32 2016-09-13 07:55:32 Outpatient [facility] [id number] 2016-09-13 00:00:00 2016-09-13 00:00:00 Outpatient [facility] [id number] Results Test Description Test Time Test Comments Text Results Atomic Results Result Comments NV, ANGIOGRAM, CEREBRAL 2017-04-14 09:23:00 Reason for Exam:->carotid stenosis FINAL REPORT DATE OF PROCEDURE: 04/11/2017 NAME : Ann Marie Kaplan SURGEON: Leandro Andrade M.D. 3RD MATE: Donta Avendano M.D. PREOPERATIVE DIAGNOSIS: 1. Left Cervical Carotid Stenosis, Symptomatic. 2. Transient ischemic attack POSTOPERATIVE DIAGNOSIS: 1. Left Cervical Carotid Stenosis, Symptomatic. 2. Transient ischemic attack. OPERATION: 1) Diagnostic Cerebral Angiogram. 2) Left cervical carotid stent placement with distal protection. 3) Post-stent balloon angioplasty of the left internal carotid artery origin. ANESTHESIA: Conscious Sedation ESTIMATED BLOOD LOSS: 50ml COMPLICATIONS: At the end of the case the patient was noted to be mildly hypotensive. Subsequent workup included EKG, cardiac enzymes, and CBC which were reassuring that there was no cardiac ischemia. The patient was transferred to the ICU for further care, where an arterial line was placed and she was started on low dose pressors. VESSELS STUDIED:RIGHT COMMON FEMORAL ARTERY x 2 RIGHT COMMON CAROTID ARTERY (CERVICAL x 3)RIGHT COMMON CAROTID ARTERY (CEREBRAL x 1)LEFT COMMON CAROTID ARTERY (CERVICAL x >10)LEFT COMMON CAROTID ARTERY ( CEREBRAL x 3) MATERIALS EMPLOYED:*6 Colombian shuttle sheath *6 Colombian short sheath *Berenstein 2 catheter*Bentson guidewire*Terumo 0.035 LT glidewire*Synchro Standard microwire*SpyderFX 7.0 mm distal protection device*Viatrac 14 Plus 6mm x 20mm balloon*XACT 8-6 x 40mm Stent*Amplatz Wire*6 Colombian Angioseal INDICATIONS: 51-year-old female who had a recent transient ischemic attack with symptoms of slurred speech and right-sided weakness in December 2016. She had an MRI done at the time which showed no acute stroke. A carotid doppler was done as part of the workup and showed greater than 75% stenosis of the left carotid bulb. Given the patient's comorbidities of obesity, COPD, type 2 diabetes, obstructive sleep apnea, short very thick neck making carotid surgery challenging, significant coronary artery disease with several coronary vessels with greater than 50% stenosis on a recent cardiac catheterization, we believe that this patient's symptomatic carotid stenosis was more safely treated with endovascular stenting than with open carotid endarterectomy. The patient subsequently underwent a diagnostic cerebral angiogram followed by stent placement for the left-sided internal carotid artery stenosis. I had a complete discussion with the patient and her family regarding natural history of the disease process and stroke risk, rationale for the procedure, benefits of the procedure, as well as the risks of the procedure. They asked appropriate questions and demonstrated understanding of the disease and the procedure. We also had a long discussion regarding the alternative treatments including carotid endarterectomy my rationale for possible stenting. The patient understood and strongly agreed with stenting over endarterectomy for her particular set of health challenges. The risks discussed included but were not limited to stroke, weakness, paralysis, aphasia, contrast reaction, kidney to toxicity, vessel dissection or injury, stent thrombosis, bleeding, groin hematoma, femoral artery occlusion, paralysis and even . They understood the risk benefit profile and agreed to proceed. The patient was not a candidate for carotid endarterectomy due to large neck size which would preclude surgical access to the lesion. PROCEDURE: After appropriate consent was obtained, the patient was brought to the angiographic suite and cardiopulmonary monitoring was placed. A timeout was performed. Both groins were prepped and draped in the usual sterile fashion. After administration of 10 mL of 2% lidocaine at the puncture site a micropuncture needle was used to perform a single wall puncture of the right common femoral artery and an angled DSA angiogram was performed. Good location the puncture site was confirmed. A 5-Fr Berenstein 2 catheter was advanced into the descending aorta, back-bled, and flushed in the usual fashion. Using coaxial technique, the catheter was advanced into the aortic arch , and with the aid of the roadmapping, digital fluoroscopy, and careful guidewire manipulation the arteries described below were selectively catheterized and DSA angiograms were performed. After the diagnostic portion of the procedure, the the diagnostic catheter was advanced over the Glidewire under roadmap guidance into the distal left external carotid artery, the diagnostic Catalyst exchanged out over an Amplatz. Under fluoroscopic guidance, a Shuttle Flexor sheath was advanced into the common carotid artery, the Amplatz wire removed, sheath backbled, flushed, and maintained on heparinized saline flush throughout the remainder the procedure. ENDOVASCULAR INTERVENTION : A total of 7500 units of heparin was administered to maintain ACT above 250 through the duration of the procedure. Using a gently curved Synchro standard microwire, the stenosis was carefully traversed with minimal contact with the plaque. Over the Synchro wire, a 7mm pre-prepped Spyder device was inserted and advanced to the horizontal petrous ICA and deployed in the distal cervical internal carotid artery. Using standard technique, a 8-6 x 40mm XACT carotid stent was then deployed in the internal carotid artery extending into the common carotid artery to maximally cover the plaque. There appeared to be some residual stenosis of the proximal ICA at the peak density of the plaque. Subsequently, under roadmap guidance, a pre-prepped Viatrac balloon was advanced over the wire with rapid exchange technique and positioned across the stenosis. The balloon was inflated carefully to a pressure of 4 jessa which was well below the nominal of 8 jessa. The balloon was deflated as the patient had mild bradycardia. The balloon angioplasty was repeated two additional times secondary to residual focal stenosis near the ICA origin and to assure appropriate stent apposition. During each subsequent inflation of the balloon, the patient became mildly and transiently bradycardic, however this rapidly resolved with deflation of the balloon. The anesthesia team had atropine on standby during this maneuver but it was not necessary to administer. Follow-up runs showed minimal residual stenosis and the balloon was removed in the standard manner. The distal protection device was then recaptured and removed. Post stenting, an angiogram of the cervical carotid artery was performed demonstrating significant improvement in the stenosis and satisfactory positioning of the stent. A repeat cerebral angiogram demonstrated no evidence of branch occlusions or slow filling branches, and no other untoward findings. The sheath was slowly retracted and the cervical common carotid artery was examined under fluoroscopy with puffing technique and no evidence of luminal injuries was noted. The sheath was then retracted into the descending aorta, the achvr guidewire was then reinserted in the sheath, which was then removed , leaving the wire in place. Hemostasis was then achieved with a 6 Colombian Angio- Seal device. The patient tolerated the procedure well and was transported from the angiography suite in unchanged neurological status, without groin hematoma and with good groin pulses. The patient was transferred to the intensive care unit for further recovery and monitoring. FINDINGS: RIGHT COMMON FEMORAL ARTERY (DSA - PA - PELVIS x 2): Normal caliber of the common femoral artery, and puncture is above the bifurcation and below the markers of the inguinal ligament. RIGHT COMMON CAROTID ARTERY (DSA - PA, LATERAL, OBLIQUE - CERVICAL x 3 ): 15% stenosis by NASCET criteria at the origin of the right internal carotid artery secondary to atherosclerotic disease. No stenosis of the origin of the right external carotid artery. The common carotid artery appears unremarkable with no ulceration or stenosis. RIGHT COMMON CAROTID ARTERY (DSA - PA, LATERAL - CEREBRAL x 1): Normal distal cervical, petrous, cavernous and supraclinoid internal carotid artery with physiological filling of the MCA and BIA and its branches. There is a moderate size right posterior commuting artery with filling seen in the CHILD NUTRITION MANAGER territory and in the vertebrobasilar system. No crossfilling across the anterior communicating artery is noted. Capillary phase and venous drainage are unremarkable. No aneurysms or other vascular lesions are seen. There is no significant intracranial atherosclerosis or stenosis. LEFT COMMON CAROTID ARTERY (DSA - PA, LATERAL, OBLIQUE - CERVICAL x >10): Diffuse atherosclerotic disease at the origin of the left internal carotid artery measuring 76% by NASCET criteria. The carotid bifurcation is located approximately at the level of C4 vertebral body. No stenosis of the external carotid artery origin. After carotid stenting, there no residual stenosis at the origin of the left internal carotid artery with minimal luminal indentation from the atherosclerotic plaque. LEFT COMMON CAROTID ARTERY (DSA - PA, LATERAL - CEREBRAL x 3): Normal distal cervical, petrous, cavernous and supraclinoid internal carotid artery with physiological filling of the MCA and BIA and its branches. No filling of the right BIA territory via the anterior commuting artery and no visualized posterior communicating artery. Post stenting, there are no new vessel cutoffs or changes. Capillary phase and venous drainage are unremarkable. No aneurysms or other vascular lesions are seen. There is no significant atherosclerosis or stenosis. INTERPRETATION: 1. Severe left cervical internal carotid artery stenosis measuring 76%, successfully treated with a carotid stent and balloon angioplasty. Poststenting, there is no residual ICA stenosis and good apposition of the stent to the vessel wall. 2. Right cervical internal carotid artery origin stenosis measuring 15%. FACULTY ATTESTATION: I, Leandro Andrade M.D., was present for the entirety of the procedure. I performed all aspects of the case. I interpreted the images and reported results. Signed: Leandro Andrade MDReport Verified Date/Time: 2016 09:23:25 Reading Location: [place] [address] Neuro Angio Reading Room -GLUCOSE METER 2017-04-13 12:52:00 POC-GLUCOSE METER (BEAKER) (test momc=3080) 211 mg/dL 70-110 TESTED AT [facility] [address] [facility] [address] POCT-GLUCOSE [id number] 08:32:00* Test Item Value Reference Range Comments POC-GLUCOSE METER (BEAKER) (test opmb=4721) 169 mg/dL 70-110 TESTED AT [address] [address] BASIC METABOLIC [id number] 05:57:00* Test Item Value Reference Range Comments SODIUM (BEAKER) (test sdgx=461) 138 meq/L 136-145 POTASSIUM (BEAKER) (test vyio=246) 4.0 meq/L 3.5-5.1 CHLORIDE (BEAKER) (test slce=476) 108 meq/L 98-107 CO2 (BEAKER) (test ezqj=368) 21 meq/L 22-29 BLOOD UREA NITROGEN (BEAKER) (test qkts=291) < mg/dL 7-21 CREATININE (BEAKER) (test vdfu=243) 0.69 mg/dL 0.57-1.25 GLUCOSE RANDOM (BEAKER) (test mnum=975) 156 mg/dL 70-105 CALCIUM (BEAKER) (test phtf=632) 8.8 mg/dL 8.4-10.2 EGFR (BEAKER) (test dxcl=8713) 90 mL/min/1.73 sq m ESTIMATED GFR IS NOT ACCURATE CREATININE CLEARANCE IN PREDICTING GLOMERULAR FILTRATION RATE. ESTIMATED GFR IS NOT APPLICABLE FOR DIALYSIS PATIENTS. Check Serum Phosphorus level 4 hours after IV phosphorus replacement or 8 hours after PO replacement completed.[id number] 05:50:00* Test Item Value Reference Range Comments PHOSPHORUS (BEAKER) (test zlao=930) 3.1 mg/dL 2.3-4.7 Check Serum Phosphorus level 4 hours after IV phosphorus replacement or 8 hours after PO replacement completed.[id number] 05:50:00* Test Item Value Reference Range Comments MAGNESIUM (BEAKER) (test netv=812) 1.4 mg/dL 1.6-2.6 Check Serum Phosphorus level 4 hours after IV phosphorus replacement or 8 hours after PO replacement completed.CREATINE KINASE (CK), TOTAL AND [id number] 05: 50:00* Test Item Value Reference Range Comments CREATINE KINASE TOTAL (BEAKER) (test cbiy=889) 40 U/L 29-200 CREATINE KINASE-MB (BEAKER) (test gsox=477) 0.7 ng/mL 0.0-6.6 CREATINE KINASE-MB INDEX (BEAKER) (test aduf=702) 1.8 % CK-MB Reference Range:<6.7 Normal6.7-10.0 Borderline>10.0 AbnormalCheck Serum Phosphorus level 4 hours after IV phosphorus replacement or 8 hours after PO replacement completed.Check Serum Phosphorus level 4 hours after IV phosphorus replacement or 8 hours after PO replacement completed.CBC W/ PLT COUNT & AUTO [id number] 04:52:00* Test Item Value Reference Range Comments WHITE BLOOD CELL COUNT (BEAKER) (test antn=407) 6.1 K/ L 3.5-10.5 RED BLOOD CELL COUNT (BEAKER) (test kgyl=858) 3.89 M/ L 3.93-5.22 HEMOGLOBIN (BEAKER) (test rkfz=296) 10.9 GM/DL 11.2-15.7 HEMATOCRIT (BEAKER) (test uuce=303) 34.0 % 34.1-44.9 MEAN CORPUSCULAR VOLUME (BEAKER) (test oubv=247) 87.4 fL 79.4-94.8 MEAN CORPUSCULAR HEMOGLOBIN (BEAKER) (test gaiq=420) 28.0 pg 25.6-32.2 MEAN CORPUSCULAR HEMOGLOBIN CONC (BEAKER) (test qszd=737) 32.1 GM/DL 32.2- 35.5 RED CELL DISTRIBUTION WIDTH (BEAKER) (test cfjw=948) 14.7 % 11.7-14.4 PLATELET COUNT (BEAKER) (test ilhr=450) 133 K/CU MM 150-450 MEAN PLATELET VOLUME (BEAKER) (test crsy=952) 12.8 fL 9.4-12.3 NUCLEATED RED BLOOD CELLS (BEAKER) (test dlll=913) 0 /100 WBC 0-0 NEUTROPHILS RELATIVE PERCENT (BEAKER) (test lvos=538) 58 % LYMPHOCYTES RELATIVE PERCENT (BEAKER) (test fgsg=636) 34 % MONOCYTES RELATIVE PERCENT (BEAKER) (test uats=759) 7 % EOSINOPHILS RELATIVE PERCENT (BEAKER) (test rhxk=281) 1 % BASOPHILS RELATIVE PERCENT (BEAKER) (test wraz=905) 0 % NEUTROPHILS ABSOLUTE COUNT (BEAKER) (test znlo=871) 3.58 K/ L 1.56-6.13 LYMPHOCYTES ABSOLUTE COUNT (BEAKER) (test qdcm=611) 2.07 K/ L 1.18-3.74 MONOCYTES ABSOLUTE COUNT (BEAKER) (test ksah=331) 0.41 K/ L 0.24-0.36 EOSINOPHILS ABSOLUTE COUNT (BEAKER) (test xogc=470) 0.04 K/ L 0.04-0.36 BASOPHILS ABSOLUTE COUNT (BEAKER) (test hkzw=719) 0.02 K/ L 0.01-0.08 IMMATURE GRANULOCYTES-RELATIVE PERCENT (BEAKER) (test dxqo=6605) 0 % 0-1 POCT-GLUCOSE [id number] 17:44:00* Test Item Value Reference Range Comments POC-GLUCOSE METER (BEAKER) (test raqo=1785) 198 mg/dL 70-110 TESTED AT [address] [address] POCT-GLUCOSE [id number] 12:52:00* Test Item Value Reference Range Comments POC-GLUCOSE METER (BEAKER) (test rkwf=0305) 203 mg/dL 70-110 TESTED AT [address] [address] POCT-GLUCOSE [id number] 08:15:00* Test Item Value Reference Range Comments POC-GLUCOSE METER (BEAKER) (test weqn=1729) 155 mg/dL 70-110 TESTED AT [address] [address] CREATINE KINASE (CK), TOTAL AND [id number] 05:26:00* Test Item Value Reference Range Comments CREATINE KINASE TOTAL (BEAKER) (test txmz=295) 37 U/L 29-200 CREATINE KINASE-MB (BEAKER) (test lgef=530) 0.9 ng/mL 0.0-6.6 CREATINE KINASE-MB INDEX (BEAKER) (test hmnw=237) 2.4 % CK-MB Reference Range:<6.7 Normal6.7-10.0 Borderline>10.0 AbnormalTROPONIN [id number] 05:26:00* Test Item Value Reference Range Comments TROPONIN I (BEAKER) (test hiwb=046) < ng/mL 0.00-0.03 Troponin I (TnI) levels must be interpreted in the context of the presenting symptoms and the clinical findings. Elevated TnI levels indicate myocardial damage, but are not specific for ischemic heart disease. Elevated TnI levels are seen in patients with other cardiac conditions (including myocarditis and congestive heart failure), and slight TnI elevations occur in patients with other conditions, including sepsis, renal failure, acidosis, acute neurological disease, and persistent tachyarrhythmia.CREATINE KINASE (CK), TOTAL AND [id number] 05:26:00* Test Item Value Reference Range Comments CREATINE KINASE TOTAL (BEAKER) (test qoyr=641) 35 U/L 29-200 CREATINE KINASE-MB (BEAKER) (test dzjx=396) 0.8 ng/mL 0.0-6.6 CREATINE KINASE-MB INDEX (BEAKER) (test gipk=902) 2.3 % CK-MB Reference Range:<6.7 Normal6.7-10.0 Borderline>10.0 AbnormalCheck Serum Phosphorus level 4 hours after IV phosphorus replacement or 8 hours after PO replacement completed.Check Serum Phosphorus level 4 hours after IV phosphorus replacement or 8 hours after PO replacement completed.CREATINE KINASE (CK), TOTAL AND [id number] 05:26:00* Test Item Value Reference Range Comments CREATINE KINASE TOTAL (BEAKER) (test irft=743) 36 U/L 29-200 CREATINE KINASE-MB (BEAKER) (test nclk=832) 0.9 ng/mL 0.0-6.6 CREATINE KINASE-MB INDEX (BEAKER) (test phyn=150) 2.5 % CK-MB Reference Range:<6.7 Normal6.7-10.0 Borderline>10.0 AbnormalBASIC METABOLIC [id number] 05:23:00* Test Item Value Reference Range Comments SODIUM (BEAKER) (test qvyj=666) 139 meq/L 136-145 POTASSIUM (BEAKER) (test imgr=326) 4.3 meq/L 3.5-5.1 CHLORIDE (BEAKER) (test zfhb=975) 113 meq/L 98-107 CO2 (BEAKER) (test zryq=917) 18 meq/L 22-29 BLOOD UREA NITROGEN (BEAKER) (test izuf=217) 17 mg/dL 7-21 CREATININE (BEAKER) (test hxsp=324) 0.73 mg/dL 0.57-1.25 GLUCOSE RANDOM (BEAKER) (test lmgn=209) 191 mg/dL 70-105 CALCIUM (BEAKER) (test mkbw=776) 8.6 mg/dL 8.4-10.2 EGFR (BEAKER) (test gtwe=0188) 84 mL/min/1.73 sq m ESTIMATED GFR IS NOT ACCURATE CREATININE CLEARANCE IN PREDICTING GLOMERULAR FILTRATION RATE. ESTIMATED GFR IS NOT APPLICABLE FOR DIALYSIS PATIENTS. [id number] 05:23:00* Test Item Value Reference Range Comments PHOSPHORUS (BEAKER) (test ybjj=892) 3.2 mg/dL 2.3-4.7 Check Serum Phosphorus level 4 hours after IV phosphorus replacement or 8 hours after PO replacement completed.[id number] 05:23:00* Test Item Value Reference Range Comments MAGNESIUM (BEAKER) (test vhfa=208) 1.8 mg/dL 1.6-2.6 Check Serum Phosphorus level 4 hours after IV phosphorus replacement or 8 hours after PO replacement completed.CBC W/PLT COUNT & AUTO [id number] 05: 03:00* Test Item Value Reference Range Comments WHITE BLOOD CELL COUNT (BEAKER) (test djby=468) 8.6 K/ L 3.5-10.5 RED BLOOD CELL COUNT (BEAKER) (test zrbs=833) 3.96 M/ L 3.93-5.22 HEMOGLOBIN (BEAKER) (test jusg=294) 11.2 GM/DL 11.2-15.7 HEMATOCRIT (BEAKER) (test vvdb=803) 35.3 % 34.1-44.9 MEAN CORPUSCULAR VOLUME (BEAKER) (test rija=699) 89.1 fL 79.4-94.8 MEAN CORPUSCULAR HEMOGLOBIN (BEAKER) (test gtnj=898) 28.3 pg 25.6-32.2 MEAN CORPUSCULAR HEMOGLOBIN CONC (BEAKER) (test thwq=512) 31.7 GM/DL 32.2- 35.5 RED CELL DISTRIBUTION WIDTH (BEAKER) (test lymj=511) 15.2 % 11.7-14.4 PLATELET COUNT (BEAKER) (test bhge=716) 182 K/CU MM 150-450 MEAN PLATELET VOLUME (BEAKER) (test hiyr=669) 12.9 fL 9.4-12.3 NUCLEATED RED BLOOD CELLS (BEAKER) (test usoc=422) 0 /100 WBC 0-0 NEUTROPHILS RELATIVE PERCENT (BEAKER) (test tlvn=459) 60 % LYMPHOCYTES RELATIVE PERCENT (BEAKER) (test whav=782) 33 % MONOCYTES RELATIVE PERCENT (BEAKER) (test wyvo=807) 6 % EOSINOPHILS RELATIVE PERCENT (BEAKER) (test muko=126) 1 % BASOPHILS RELATIVE PERCENT (BEAKER) (test mirf=401) 0 % NEUTROPHILS ABSOLUTE COUNT (BEAKER) (test vnzy=937) 5.11 K/ L 1.56-6.13 LYMPHOCYTES ABSOLUTE COUNT (BEAKER) (test iakd=565) 2.79 K/ L 1.18-3.74 MONOCYTES ABSOLUTE COUNT (BEAKER) (test qboe=119) 0.55 K/ L 0.24-0.36 EOSINOPHILS ABSOLUTE COUNT (BEAKER) (test wfdc=054) 0.05 K/ L 0.04-0.36 BASOPHILS ABSOLUTE COUNT (BEAKER) (test fcoi=711) 0.03 K/ L 0.01-0.08 IMMATURE GRANULOCYTES-RELATIVE PERCENT (BEAKER) (test umoq=3704) 0 % 0-1 POCT-GLUCOSE [id number] 22:01:00* Test Item Value Reference Range Comments POC-GLUCOSE METER (BEAKER) (test gwzc=9455) 231 mg/dL 70-110 TESTED AT [address] [address] POCT-GLUCOSE [id number] 18:10:00* Test Item Value Reference Range Comments POC-GLUCOSE METER (BEAKER) (test daro=5372) 203 mg/dL 70-110 TESTED AT [place] [id number] [facility] [address] CREATINE KINASE (CK), TOTAL AND [id number] 17:55:00* Test Item Value Reference Range Comments CREATINE KINASE TOTAL (BEAKER) (test nduw=505) 46 U/L 29-200 CREATINE KINASE-MB (BEAKER) (test ilrj=651) 1.4 ng/mL 0.0-6.6 CREATINE KINASE-MB INDEX (BEAKER) (test accw=106) 3.0 % CK-MB Reference Range:<6.7 Normal6.7-10.0 Borderline>10.0 AbnormalTROPONIN [id number] 17:55:00* Test Item Value Reference Range Comments TROPONIN I (BEAKER) (test frot=364) < ng/mL 0.00-0.03 Troponin I (TnI) levels must be interpreted in the context of the presenting symptoms and the clinical findings. Elevated TnI levels indicate myocardial damage, but are not specific for ischemic heart disease. Elevated TnI levels are seen in patients with other cardiac conditions (including myocarditis and congestive heart failure), and slight TnI elevations occur in patients with other conditions, including sepsis, renal failure, acidosis, acute neurological disease, and persistent tachyarrhythmia.CREATINE KINASE (CK), TOTAL AND [id number] 17:26:00* Test Item Value Reference Range Comments CREATINE KINASE TOTAL (BEAKER) (test ltzm=508) 46 U/L 29-200 CREATINE KINASE-MB (BEAKER) (test edrv=040) 1.3 ng/mL 0.0-6.6 CREATINE KINASE-MB INDEX (BEAKER) (test exyw=218) 2.8 % CK-MB Reference Range:<6.7 Normal6.7-10.0 Borderline>10.0 AbnormalCBC (HEMOGRAM ONLY)2017-04-11 17:22:00* Test Item Value Reference Range Comments WHITE BLOOD CELL COUNT (BEAKER) (test hkfs=224) 10.2 K/ L 3.5-10.5 RED BLOOD CELL COUNT (BEAKER) (test llwp=934) 4.09 M/ L 3.93-5.22 HEMOGLOBIN (BEAKER) (test jcbn=175) 11.6 GM/DL 11.2-15.7 HEMATOCRIT (BEAKER) (test lmso=567) 36.2 % 34.1-44.9 MEAN CORPUSCULAR VOLUME (BEAKER) (test zril=833) 88.5 fL 79.4-94.8 MEAN CORPUSCULAR HEMOGLOBIN (BEAKER) (test toex=434) 28.4 pg 25.6-32.2 MEAN CORPUSCULAR HEMOGLOBIN CONC (BEAKER) (test amhi=350) 32.0 GM/DL 32.2- 35.5 RED CELL DISTRIBUTION WIDTH (BEAKER) (test hzsi=055) 15.1 % 11.7-14.4 PLATELET COUNT (BEAKER) (test uemz=569) 216 K/CU MM 150-450 MEAN PLATELET VOLUME (BEAKER) (test hqtk=490) 12.6 fL 9.4-12.3 NUCLEATED RED BLOOD CELLS (BEAKER) (test onjd=381) 0 /100 WBC 0-0 COMPREHENSIVE METABOLIC [id number] 13:06:00* Test Item Value Reference Range Comments TOTAL PROTEIN (BEAKER) (test sbxn=120) 5.8 gm/dL 6.0-8.3 ALBUMIN (BEAKER) (test uduk=4676) 3.0 g/dL 3.5-5.0 ALKALINE PHOSPHATASE (BEAKER) (test axcw=072) 116 U/L 40-150 BILIRUBIN TOTAL (BEAKER) (test pujc=153) < mg/dL 0.2-1.2 SODIUM (BEAKER) (test cvzd=463) 138 meq/L 136-145 POTASSIUM (BEAKER) (test phxd=394) 4.6 meq/L 3.5-5.1 CHLORIDE (BEAKER) (test mnhs=464) 113 meq/L 98-107 CO2 (BEAKER) (test vorv=350) 19 meq/L 22-29 BLOOD UREA NITROGEN (BEAKER) (test jbed=364) 21 mg/dL 7-21 CREATININE (BEAKER) (test ojcv=496) 0.77 mg/dL 0.57-1.25 GLUCOSE RANDOM (BEAKER) (test kedb=413) 129 mg/dL 70-105 CALCIUM (BEAKER) (test ygog=537) 7.7 mg/dL 8.4-10.2 AST (SGOT) (BEAKER) (test bxay=273) 32 U/L 5-34 ALT (SGPT) (BEAKER) (test bvua=194) 30 U/L 6-55 EGFR (BEAKER) (test szpa=2432) 79 mL/min/1.73 sq m ESTIMATED GFR IS NOT ACCURATE CREATININE CLEARANCE IN PREDICTING GLOMERULAR FILTRATION RATE. ESTIMATED GFR IS NOT APPLICABLE FOR DIALYSIS PATIENTS. [id number] 12:46:00* Test Item Value Reference Range Comments PHOSPHORUS (BEAKER) (test tzhv=060) 5.0 mg/dL 2.3-4.7 TROPONIN [id number] 12:44:00* Test Item Value Reference Range Comments TROPONIN I (BEAKER) (test ynmc=929) < ng/mL 0.00-0.03 Troponin I (TnI) levels must be interpreted in the context of the presenting symptoms and the clinical findings. Elevated TnI levels indicate myocardial damage, but are not specific for ischemic heart disease. Elevated TnI levels are seen in patients with other cardiac conditions (including myocarditis and congestive heart failure), and slight TnI elevations occur in patients with other conditions, including sepsis, renal failure, acidosis, acute neurological disease, and persistent tachyarrhythmia.POCT-GLUCOSE [id number] 12:35:00* Test Item Value Reference Range Comments POC-GLUCOSE METER (BEAKER) (test byll=5533) 133 mg/dL 70-110 TESTED AT [facility] [address] [facility] [address] CBC (HEMOGRAM ONLY)2017-04-11 12:19:00* Test Item Value Reference Range Comments WHITE BLOOD CELL COUNT (BEAKER) (test cvse=277) 7.2 K/ L 3.5-10.5 RED BLOOD CELL COUNT (BEAKER) (test eurz=787) 3.85 M/ L 3.93-5.22 HEMOGLOBIN (BEAKER) (test uslu=108) 10.8 GM/DL 11.2-15.7 HEMATOCRIT (BEAKER) (test mwsu=504) 34.0 % 34.1-44.9 MEAN CORPUSCULAR VOLUME (BEAKER) (test lpzx=923) 88.3 fL 79.4-94.8 MEAN CORPUSCULAR HEMOGLOBIN (BEAKER) (test ugam=356) 28.1 pg 25.6-32.2 MEAN CORPUSCULAR HEMOGLOBIN CONC (BEAKER) (test powe=548) 31.8 GM/DL 32.2- 35.5 RED CELL DISTRIBUTION WIDTH (BEAKER) (test gncb=348) 15.1 % 11.7-14.4 PLATELET COUNT (BEAKER) (test xoeb=729) 152 K/CU MM 150-450 MEAN PLATELET VOLUME (BEAKER) (test jdck=290) 13.4 fL 9.4-12.3 NUCLEATED RED BLOOD CELLS (BEAKER) (test enew=275) 0 /100 WBC 0-0 POCT-P2Y12 PLATELET [id number] 08:19:00* Test Item Value Reference Range Comments POC-P2Y12 PLATELET AGG (BEAKER) (test ltya=0264) 171 PRU RANGE INFORMATION: PRU reference range is 194-418. Post Drug Results: Lower PRU levels are associated with expected antiplatelet effect. Values may be below the stated reference range above. The post-drug PRU values reported in the [employer] P2Y12 package insert are [id number].POCT-ASPIRIN PLATELET [id number] 08:19:00* Test Item Value Reference Range Comments POC-ASPIRIN PLATELET AGG (BEAKER) (test sjty=2032) 411 ARU RANGE INFORMATION: 350-549 ARU Therapeutic range for platelet function. 550-700 ARU Non-Therapeutic range for platelet function.BASIC METABOLIC [id number] 07:39:00* Test Item Value Reference Range Comments SODIUM (BEAKER) (test vtpe=631) 136 meq/L 136-145 POTASSIUM (BEAKER) (test wpjh=085) 4.5 meq/L 3.5-5.1 CHLORIDE (BEAKER) (test azdz=571) 106 meq/L 98-107 CO2 (BEAKER) (test iwtv=369) 22 meq/L 22-29 BLOOD UREA NITROGEN (BEAKER) (test gfkb=602) 24 mg/dL 7-21 CREATININE (BEAKER) (test gmtq=670) 0.95 mg/dL 0.57-1.25 GLUCOSE RANDOM (BEAKER) (test alua=253) 196 mg/dL 70-105 CALCIUM (BEAKER) (test hyge=438) 9.3 mg/dL 8.4-10.2 EGFR (BEAKER) (test engy=0867) 62 mL/min/1.73 sq m ESTIMATED GFR IS NOT ACCURATE CREATININE CLEARANCE IN PREDICTING GLOMERULAR FILTRATION RATE. ESTIMATED GFR IS NOT APPLICABLE FOR DIALYSIS PATIENTS. PT/[id number] 07:36:00* Test Item Value Reference Range Comments PROTIME (BEAKER) (test xlwk=349) 12.9 seconds 11.7-14.7 INR (BEAKER) (test wegc=934) 1.0 <=5.9 PARTIAL THROMBOPLASTIN TIME (BEAKER) (test kzsw=088) 34.5 seconds 22.5-36.0 RECOMMENDED COUMADIN/WARFARIN INR THERAPY RANGESSTANDARD DOSE: 2.0 - 3.0 Includes: PROPHYLAXIS for venous thrombosis, systemic embolization; TREATMENT for venous thrombosis and/or pulmonary embolus.HIGH RISK: Target INR is 2.5-3.5 for patients with mechanical heart valves.CBC W/PLT COUNT & AUTO [id number] 07:14:00* Test Item Value Reference Range Comments WHITE BLOOD CELL COUNT (BEAKER) (test ookr=447) 8.7 K/ L 3.5-10.5 RED BLOOD CELL COUNT (BEAKER) (test osny=376) 4.64 M/ L 3.93-5.22 HEMOGLOBIN (BEAKER) (test gqjo=329) 13.2 GM/DL 11.2-15.7 HEMATOCRIT (BEAKER) (test oqul=914) 41.0 % 34.1-44.9 MEAN CORPUSCULAR VOLUME (BEAKER) (test zjnh=093) 88.4 fL 79.4-94.8 MEAN CORPUSCULAR HEMOGLOBIN (BEAKER) (test ehch=299) 28.4 pg 25.6-32.2 MEAN CORPUSCULAR HEMOGLOBIN CONC (BEAKER) (test sdec=705) 32.2 GM/DL 32.2- 35.5 RED CELL DISTRIBUTION WIDTH (BEAKER) (test csin=063) 15.1 % 11.7-14.4 PLATELET COUNT (BEAKER) (test izgv=903) 195 K/CU MM 150-450 MEAN PLATELET VOLUME (BEAKER) (test seib=609) 13.0 fL 9.4-12.3 NUCLEATED RED BLOOD CELLS (BEAKER) (test zkvv=743) 0 /100 WBC 0-0 NEUTROPHILS RELATIVE PERCENT (BEAKER) (test qxzq=866) 66 % LYMPHOCYTES RELATIVE PERCENT (BEAKER) (test rnfa=012) 25 % MONOCYTES RELATIVE PERCENT (BEAKER) (test hbrb=494) 7 % EOSINOPHILS RELATIVE PERCENT (BEAKER) (test kdqo=402) 1 % BASOPHILS RELATIVE PERCENT (BEAKER) (test cfbs=981) 1 % NEUTROPHILS ABSOLUTE COUNT (BEAKER) (test wkmh=261) 5.79 K/ L 1.56-6.13 LYMPHOCYTES ABSOLUTE COUNT (BEAKER) (test nhyz=347) 2.19 K/ L 1.18-3.74 MONOCYTES ABSOLUTE COUNT (BEAKER) (test igpa=850) 0.59 K/ L 0.24-0.36 EOSINOPHILS ABSOLUTE COUNT (BEAKER) (test ztve=930) 0.08 K/ L 0.04-0.36 BASOPHILS ABSOLUTE COUNT (BEAKER) (test kdas=633) 0.04 K/ L 0.01-0.08 IMMATURE GRANULOCYTES-RELATIVE PERCENT (BEAKER) (test nlcz=9176) 0 % 0-1 CHEST 2 VIEWS [place] [address] Patient Name: ANN MARIE KAPLAN MR #: [id number] : 1965 Age/Sex: 51/F Req #: [id number] Adm Physician: Ordered by: SHERYL GOULD MD Report #: [id number] Location: OR Room/Bed: Procedure: [id number] DX/ CHEST 2 VIEWS Exam Date: 09/29/17 Exam Time: 1220 REPORT STATUS: Signed PROCEDURE: X-RAY CHEST, TWO VIEWS COMPARISON: None. INDICATIONS: PREOPERATIVE CHEST XRAY FOR COLON SURGERY FINDINGS: LUNGS: No consolidations or edema. PLEURA: No effusions or pneumothorax. HEART T MEDIASTINUM: The heart is within normal size- limits. Tortuosity and atherosclerotic calcification of the thoracic aorta. Hazy opacity along the left heart border likely reflects prominent epicardial fat. BONES T SOFT TISSUES: No acute findings. CONCLUSION: No acute cardiopulmonary abnormality. Dictated by: Patsy Canales M.D. on 09/29/2017 at 13:03 Electronically approved by: Patsy Canales M.D. on 09/29/2017 at 13:03 Dictated By: PATSY CANALES MD 1303 Transcribed By: MELISSA on 09/29/17 1303 COPY TO: SHERYL GOULD MD MRI BRAIN WO [place] [address] Patient Name: ANN MARIE KAPLAN MR #: [id number] : 1965 Age/Sex: 51/F Req #: [id number] Adm Physician: Ordered by: LEANDRO ANDRADE M.D. Report #: [id number] Location: MRI Room/Bed: Procedure: [id number] MRI/MRI BRAIN WO Exam Date: Exam Time: REPORT STATUS: Signed Examination: MRI BRAIN WITHOUT CONTRAST History: Right arm and finger numbness. New onset headaches. Comparison studies: None Technique: Sagittal T2; axial DWI, FLAIR, GRE or SWI, T1, Coronal FLAIR. Intravenous contrast: None Findings: Scalp: No abnormal signal. No masses. Bone marrow: Normal in signal intensity. Brain volume : Adequate for age. No volume loss. Ventricles: Normal in size and configuration. No hydrocephalus. Extra-axial spaces: No abnormalities. Parenchyma: There are patchy areas of T2/FLAIR hyperintensity in the periventricular and subcortical white matter and more confluent area in the pontine white matter, nonspecific. A chronic lacunar infarct is demonstrated in the left centrum semiovale. No masses, hemorrhage, or acute vascular insults. Suprasellar and sellar region: No abnormalities. Craniocervical junction: No abnormalities. The foramen magnum is patent. No Chiari malformations. Vessels: Normal flow-voids in the arteries and sinuses. Additional findings:None. IMPRESSION: 1. No acute intracranial abnormal. 2. Mild chronic microvascular ischemic change. 3. Chronic lacunar infarct in the left centrum semiovale. Signed by: Dr. Shirley Azul M.D. on 07/23/2017 8:57 AM Dictated By: SHIRLEY WISE MD 6 Transcribed By: JONAH on 07/23/17856 COPY TO: LEANDRO ANDRADE M.D.
--- OUTSIDE RECORDS SUMMARY | 2017-10-02 06:06 | XMS REPORT | Clinical Summary ---
Author Author SRINATH [facility] Address Unknown Phone Unavailable Care Team Providers Care Federal Agent Name Role Phone PCP Unavailable Allergies Active Allergy Reactions Severity Noted Date Comments Isosorbide 04/11/2017 Adhesive Tape Rash Low 04/11/2017 Current Medications Prescription Sig. Disp. Refills Start End Date Status Date metoprolol (LOPRESSOR) Take 100 mg by mouth 2 Active 100 MG tablet (two) times daily. insulin glargine (LANTUS) Inject 70 Units Active 100 unit/mL injection subcutaneously nightly Use as directed . spironolactone Take 25 mg by mouth Active (ALDACTONE) 25 MG tablet daily. alendronate (FOSAMAX) 70 Take 70 mg by mouth every Active MG tablet 7 days Take in the morning with a full glass of water, on an empty stomach, and do not take anything else by mouth or lie down for the next 30 min. . amLODIPine (NORVASC) 5 MG Take 5 mg by mouth daily. Active tablet pyridoxine, vitamin B6, Inject 20 mg Active (B-6) 100 mg/mL injection intravenously daily. vitamin Take 1 tablet by mouth Active w/hqhqrah-axvq-uvmldc daily. ( PLUS) 27 mg iron- 1 mg Tab dapagliflozin (FARXIGA) 5 Take 5 mg by mouth daily. Active mg tablet metFORMIN (GLUCOPHAGE) Take 1,000 mg by mouth 2 Active 1000 MG tablet (two) times daily with breakfast and dinner. allopurinol (ZYLOPRIM) Take 300 mg by mouth Active 300 MG tablet daily. gemfibrozil (LOPID) 600 Take 600 mg by mouth Active MG tablet daily. lisinopril Take 20 mg by mouth Active (PRINIVIL,ZESTRIL) 20 MG daily. tablet clonazePAM (KLONOPIN) 0.5 Take 0.5 mg by mouth Active MG tablet daily. albuterol HFA (VENTOLIN Inhale 2 puffs by mouth Active HFA) 90 mcg/actuation via inhaler every 6 (six) inhaler hours as needed for Wheezing. CYCLOBENZAPRINE HCL Take by mouth as needed Active (FLEXERIL ORAL) Pt did not know mg . aspirin 325 MG tablet Take 1 tablet (325 mg 60 tablet 3 04/13/20 Active total) by mouth daily. 17 clopidogrel (PLAVIX) 75 Take 1 tablet (75 mg 60 tablet 3 04/13/20 Active mg tablet total) by mouth daily. 17 aspirin 325 MG tablet Take 1 tablet (325 mg 90 tablet 3 04/14/20 Active total) by mouth daily. 17 18 atorvastatin (LIPITOR) 80 Take 1 tablet (80 mg 90 tablet 3 04/13/20 04/13/20 Active MG tablet total) by mouth nightly. 17 18 clopidogrel (PLAVIX) 75 Take 1 tablet (75 mg 90 tablet 3 04/14/20 Active mg tablet total) by mouth daily. 17 18 miscellaneous medical Blood pressure cuff. 1 each 0 04/13/20 Active supply Misc 17 clopidogrel (PLAVIX) 75 Take 75 mg by mouth 04/13/20 Discontin mg tablet daily. 17 ued aspirin 325 MG tablet Take 325 mg by mouth 04/13/20 Discontin daily. 17 ued Active Problems Problem Noted Date Carotid stenosis 04/11/2017 Carotid stenosis, left 04/11/2017 Idiopathic hypotension 04/11/2017 Encounters Date Type Specialty Care Team Description 04/11/2017 Hospital Intensive Care Leandro Brown Carotid stenosis, - Encounter MD Kj left;Idiopathic 04/13/2017 hypotension 04/11/2017 Orders Only Katie Gamboa RN Stenosis of carotid artery, unspecified laterality 04/11/2017 Anesthesia Valeria Darnell Event 04/11/2017 Procedure Pass 04/11/2017 Surgery Virtual, Surgeon PROCEDURE DONE OUTSIDE OR 04/10/2017 Outside Orders Central Scheduling Leandro Brown Stenosis of carotid MD Kj artery, unspecified laterality (Primary Dx) 04/10/2017 Orders Only Radiology Nishant Katz, Stenosis of left carotid PA-C artery (Primary Dx) after 10/01/2016 Social History Tobacco Use Types Packs/Day Years Used Date Current Every Day Smoker 0.5 Smokeless Tobacco: Never Used Alcohol Use Drinks/Week oz/Week Comments No Sex Assigned at Date Recorded Not on file Last Filed Vital Signs Vital Sign Reading Time Taken Blood Pressure 140/68 04/13/2017 11:00 AM CORRECTION OFFICER SUPERVISOR Pulse 71 04/13/2017 11:00 AM CORRECTION OFFICER SUPERVISOR Temperature 37.1 C (98.7 F) 04/13/2017 11:00 AM CORRECTION OFFICER SUPERVISOR Respiratory Rate 22 04/13/2017 11:00 AM CORRECTION OFFICER SUPERVISOR Oxygen Saturation 97% 04/13/2017 11:00 AM CORRECTION OFFICER SUPERVISOR Inhaled Oxygen - - Concentration Weight 105.1 kg (231 lb 11.3 oz) 04/12/2017 6:00 AM CORRECTION OFFICER SUPERVISOR Height 162.6 cm (5' 4") 04/11/2017 6:35 AM CORRECTION OFFICER SUPERVISOR Body Mass Index 39.77 04/12/2017 6:00 AM CORRECTION OFFICER SUPERVISOR Plan of Treatment Not on file Procedures Procedure Name Priority Date/Time Associated Diagnosis Comments PROCEDURE DONE OUTSIDE OR 04/11/2017 CAROTID STENOSIS 10:12 AM CORRECTION OFFICER SUPERVISOR after 10/01/2016 Results * RHYTHM STRIP - SCAN (04/20/2017 9:50 AM) * POC-Glucose meter (04/13/2017 12:22 PM) Only the most recent of 8 results within the time period is included. Component Value Ref Range POC-Glucose Meter 211 (H)Comment: TESTED AT [address] 70 - 110 mg /dL [facility] [id number] Specimen [place] [address] * Phosphorus (04/13/2017 3:49 AM) Only the most recent of 3 results within the time period is included. Component Value Ref Range Phosphorus 3.1 2.3 - 4.7 mg/dL Specimen Performing Laboratory Blood - Arm, [address] [address] Narrative Check Serum Phosphorus level 4 hours after IV phosphorus replacement or 8 hours after PO replacement completed. * Magnesium (04/13/2017 3:49 AM) Only the most recent of 2 results within the time period is included. Component Value Ref Range Magnesium 1.4 (L) 1.6 - 2.6 mg/dL Specimen Performing Laboratory Blood - Arm, [address] [address] Narrative Check Serum Phosphorus level 4 hours after IV phosphorus replacement or 8 hours after PO replacement completed. * Creatine Kinase (CK), Total and MB (04/13/2017 3:49 AM) Only the most recent of 6 results within the time period is included. Component Value Ref Range Total CK 40 29 - 200 U/L CK-MB 0.7 0.0 - 6.6 ng/mL MB Relative Index 1.8 % Specimen Performing Laboratory Blood - Arm, [address] [address] Narrative CK-MB Reference Range: <6.7Normal 6.7-10.0Borderline >10.0 Abnormal Check Serum Phosphorus level 4 hours after IV phosphorus replacement or 8 hours after PO replacement completed. Check Serum Phosphorus level 4 hours after IV phosphorus replacement or 8 hours after PO replacement completed. * Basic metabolic panel (04/13/2017 3:49 AM) Only the most recent of 3 results within the time period is included. Component Value Ref Range Sodium 138 136 - 145 meq/L Potassium 4.0 3.5 - 5.1 meq/L Chloride 108 (H) 98 - 107 meq/L CO2 21 (L) 22 - 29 meq/L BUN <2 (L) 7 - 21 mg/dL Creatinine 0.69 0.57 - 1.25 mg/dL Glucose 156 (H) 70 - 105 mg/dL Calcium 8.8 8.4 - 10.2 mg/dL EGFR 90Comment: ESTIMATED GFR IS NOT ACCURATE mL/min/1.73 sq m CREATININE CLEARANCE IN PREDICTING GLOMERULAR FILTRATION RATE. ESTIMATED GFR IS NOT APPLICABLE FOR DIALYSIS PATIENTS. Specimen Performing Laboratory Blood - Arm, [address] [address] Narrative Check Serum Phosphorus level 4 hours after IV phosphorus replacement or 8 hours after PO replacement completed. * CBC with platelet count + automated diff (04/13/2017 3:47 AM) Only the most recent of 3 results within the time period is included. Component Value Ref Range WBC 6.1 3.5 - 10.5 K/ L RBC 3.89 (L) 3.93 - 5.22 M/ L Hemoglobin 10.9 (L) 11.2 - 15.7 GM/DL Hematocrit 34.0 (L) 34.1 - 44.9 % MCV 87.4 79.4 - 94.8 fL MCH 28.0 25.6 - 32.2 pg MCHC 32.1 (L) 32.2 - 35.5 GM/DL RDW 14.7 (H) 11.7 - 14.4 % Platelets 133 (L) 150 - 450 K/CU MM MPV 12.8 (H) 9.4 - 12.3 fL nRBC 0 0 - 0 /100 WBC % Neutros 58 % % Lymphs 34 % % Monos 7 % % Eos 1 % % Baso 0 % # Neutros 3.58 1.56 - 6.13 K/ L # Lymphs 2.07 1.18 - 3.74 K/ L # Monos 0.41 (H) 0.24 - 0.36 K/ L # Eos 0.04 0.04 - 0.36 K/ L # Baso 0.02 0.01 - 0.08 K/ L Immature 0 0 - 1 % Granulocytes-Relative Specimen Performing Laboratory Blood [place] [id number] * CBC with platelet count + automated diff (04/13/2017 3:47 AM) Only the most recent of 3 results within the time period is included. Specimen Performing Laboratory Blood Narrative The following orders were created for panel order CBC with platelet count + automated diff. Procedure Abnormality Status --------- - ------ CBC with platelet count ...[[id number]]AbnormalFinal result Please view results for these tests on the individual orders. * ECHOCARDIOGRAM REPORT - SCAN (04/12/2017 3:20 PM) * Troponin I (04/12/2017 4:18 AM) Only the most recent of 3 results within the time period is included. Component Value Ref Range Troponin I <0.01 0.00 - 0.03 ng/mL Specimen Performing Laboratory Blood [address] [address] Narrative Troponin I (TnI) levels must be interpreted [...] failure, acidosis, acute neurological disease, and persistent tachyarrhythmia. 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 Clinical History HGB 10.8 HCT 34 % CATH, DM, HLD, HTN, CVA Contrast Medium: Definity. Amount - 2 ml Height: 64 inches Weight: 98.88 kg (218 lbs) BSA: 2.03 m^2 BMI: 37.42 kg/m^2 HR: 60 bpm BP: 118/70 mmHg Summary 1. All of the LV segments contract normally . LVEF by Chew's method of disk assessment is normal (>60%) . 2. Grade 1 diastolic dysfunction (impaired relaxation and low-normal LA pressure) 3. Unable to estimate peak systolic PA pressure Signature Findings Left Ventricle LV endocardium is adequately visualized with IV ultrasound enhancing agent. The left ventricle is chamber size (by vol index) is normal (female - LVED vol - 29-61ml/m2). Mild concentric LV hypertrophy. All of the LV segments contract normally . Global LV systolic function normal . LVEF by Chew's method of disk assessment is normal (>60%) . Grade 1 diastolic dysfunction ( impaired relaxation and low-normal LA pressure). Left AtriumLA size is mildly enlarged (35-41 ml/m2) . Right VentricleRV chamber size is normal . Global RV systolic function is low normal . Right Atrium RA size is normal. Atrial SeptumNormal interatrial septum by available views. Aortic Valve Mild AoV cusp thickening. Mild AoV cusp calcification. Aortic annulus appears normal, calcified . No evidence of stenosis. Mitral Valve Cexu-nv-gyxgfnco MV leaflet thickening. Mild mitral regurgitation. Tricuspid ValveTV structure is normal. A trace of tricuspid regurgitation. Unable to estimate peak systolic PA pressure; inadequate TR velocity signal. Pulmonic Valve Normal PV structure and function by limited views and Doppler. AortaAortic root size (SInus of Valsalva diameter) is normal . PericardiumNo significant pericardial effusion is visualized. IVC/SVC/PA/PV/PleuralThe estimated RA pressure by IVC dynamics 16-20mmHg . Chambers/Structures Left Atrium LA Volume: 80.49 ml LA Area: 23.25 cm^2 LA Vol. Index: 40 ml/m^2 Left Ventricle LVIDd: 4.79 cm LVIDs: 2.62 cm LV Septum Diastolic: 1.15 cm LV PW Diastolic: 1.1 cmLV FS: 45.3 % LVEDV Chew's:119.1 ml LV IVRT: 76.7 msec LVESV Chew's:41.44 ml LVEDVI: 59 ml/m^2 LVEF Chew's: 65.2 % LVESVI: 20 ml/m^ 2 LVOT Diameter: 1.93 cm Right Atrium RA Vol. (Sngl Plane): 52.56 ml Right Ventricle TAPSE: 1.75 cm Aorta Ao Root S of Lyudmila.: 2.15 cmAscending Aorta: 2.46 cm Doppler/Quantitative Measurements Mitral Valve MV Peak E-Wave: 1.3 m/s MV Peak A-Wave: 1.1 m/s E/A Ratio: 1.18 Peak Gradient: 6.72 mmHg MV Erasmo. Peak: Tissue Doppler E' Lateral Velocity: 0.09 m/s E/E': 14.34 Aortic Valve Peak Velocity: 1.9 m/s Mean Velocity: 1.25 m/s Peak Gradient: 14.45 mmHgMean Gradient: 7.17 mmHg AV Area (continuity): 2.05 cm^2 AV VTI: 41.88 cm AV DVI: 0.7 LVOT Peak Velocity: 1.31 m/s Peak Gradient: 6.83 mmHg Mean Velocity: 0.81 m/s Mean Gradient: 3.24 mmHg LVOT Diameter: 1.93 cmLVOT VTI: 29.42 cm LVOT Area: 2.93 cm^2LVOT SV:86.03 ml LVOT CO: 5.16 l/min LVOT CI: 2.54 l/min/m^2 Procedure Note Interface, External Ris In - 04/12/2017 2:55 PM CORRECTION OFFICER SUPERVISOR Transthoracic Echocardiography Report (TTE) Demographics Patient Name ANN MARIE KAPLAN Date of Study 04/11/2017 [facility] Gender Female Visit Number [id number] Race Unknown Room Number [id number] Number Date of 1965 Referring Gaurang Yung MD Physician 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 Clinical History HGB 10.8 HCT 34 % CATH, DM, HLD, HTN, CVA Contrast Medium: Definity. Amount - 2 ml Height: 64 inches Weight: 98.88 kg (218 lbs) BSA: 2.03 m^2 BMI: 37.42 kg/m^2 HR: 60 bpm BP: 118/70 mmHg Summary 1. All of the LV segments contract normally . LVEF by Chew's method of disk assessment is normal (>60%) . 2. Grade 1 diastolic dysfunction (impaired relaxation and low-normal LA pressure) 3. Unable to estimate peak systolic PA pressure Signature Findings Left Ventricle LV endocardium is adequately visualized with IV ultrasound enhancing agent. The left ventricle is chamber size (by vol index) is normal (female - LVED vol - 29-61ml/m2). Mild concentric LV hypertrophy. All of the LV segments contract normally . Global LV systolic function normal . LVEF by Chew's method of disk assessment is normal (>60%) . Grade 1 diastolic dysfunction (impaired relaxation and low-normal LA pressure). Left Atrium LA size is mildly enlarged (35-41 ml/m2) . Right Ventricle RV chamber size is normal . Global RV systolic function is low normal . Right Atrium RA size is normal. Atrial Septum Normal interatrial septum by available views. Aortic Valve Mild AoV cusp thickening. Mild AoV cusp calcification. Aortic annulus appears normal, calcified . No evidence of stenosis. Mitral Valve Zlgy-nh-utbtsowz MV leaflet thickening. Mild mitral regurgitation. Tricuspid Valve TV structure is normal. A trace of tricuspid regurgitation. Unable to estimate peak systolic PA pressure; inadequate TR velocity signal. Pulmonic Valve Normal PV structure and function by limited views and Doppler. Aorta Aortic root size (SInus of Valsalva diameter) is normal . Pericardium No significant pericardial effusion is visualized. IVC/SVC/PA/PV/Pleural The estimated RA pressure by IVC dynamics 16-20mmHg . Chambers/Structures Left Atrium LA Volume: 80.49 ml LA Area: 23.25 cm^2 LA Vol. Index: 40 ml/m^2 Left Ventricle LVIDd: 4.79 cm LVIDs: 2.62 cm LV Septum Diastolic: 1.15 cm LV PW Diastolic: 1.1 cm LV FS: 45.3 % LVEDV Chew's:119.1 ml LV IVRT: 76.7 msec LVESV Chew's:41.44 ml LVEDVI: 59 ml/m^2 LVEF Chew's: 65.2 % LVESVI: 20 ml/m^2 LVOT Diameter: 1.93 cm Right Atrium RA Vol. (Sngl Plane): 52.56 ml Right Ventricle TAPSE: 1.75 cm Aorta Ao Root S of Lyudmila.: 2.15 cm Ascending Aorta: 2.46 cm Doppler/Quantitative Measurements Mitral Valve MV Peak E-Wave: 1.3 m/s MV Peak A-Wave: 1.1 m/s E/A Ratio: 1.18 Peak Gradient: 6.72 mmHg MV Erasmo. Peak: Tissue Doppler E' Lateral Velocity: 0.09 m/s E/E': 14.34 Aortic Valve Peak Velocity: 1.9 m/s Mean Velocity: 1.25 m/s Peak Gradient: 14.45 mmHg Mean Gradient: 7.17 mmHg AV Area (continuity): 2.05 cm^2 AV VTI: 41.88 cm AV DVI: 0.7 LVOT Peak Velocity: 1.31 m/s Peak Gradient: 6.83 mmHg Mean Velocity: 0.81 m/s Mean Gradient: 3.24 mmHg LVOT Diameter: 1.93 cm LVOT VTI: 29.42 cm LVOT Area: 2.93 cm^2 LVOT SV:86.03 ml LVOT CO: 5.16 l/min LVOT CI: 2.54 l/min/m^2 * CBC (Hemogram only) (04/11/2017 4:58 PM) Only the most recent of 2 results within the time period is included. Component Value Ref Range WBC 10.2 3.5 - 10.5 K/ L RBC 4.09 3.93 - 5.22 M/ L Hemoglobin 11.6 11.2 - 15.7 GM/DL Hematocrit 36.2 34.1 - 44.9 % MCV 88.5 79.4 - 94.8 fL MCH 28.4 25.6 - 32.2 pg MCHC 32.0 (L) 32.2 - 35.5 GM/DL RDW 15.1 (H) 11.7 - 14.4 % Platelets 216 150 - 450 K/CU MM MPV 12.6 (H) 9.4 - 12.3 fL nRBC 0 0 - 0 /100 WBC Specimen Performing Laboratory Blood - Line, Arterial [facility] [address] [address] * Comprehensive metabolic panel (04/11/2017 12:04 PM) Component Value Ref Range Protein, Total 5.8 (L) 6.0 - 8.3 gm/dL Albumin 3.0 (L) 3.5 - 5.0 g/dL Alkaline Phosphatase 116 40 - 150 U/L Total Bilirubin <0.3 0.2 - 1.2 mg/dL Sodium 138 136 - 145 meq/L Potassium 4.6 3.5 - 5.1 meq/L Chloride 113 (H) 98 - 107 meq/L CO2 19 (L) 22 - 29 meq/L BUN 21 7 - 21 mg/dL Creatinine 0.77 0.57 - 1.25 mg/dL Glucose 129 (H) 70 - 105 mg/dL Calcium 7.7 (L) 8.4 - 10.2 mg/dL AST 32 5 - 34 U/L ALT 30 6 - 55 U/L EGFR 79Comment: ESTIMATED GFR IS NOT ACCURATE mL/min/1.73 sq m CREATININE CLEARANCE IN PREDICTING GLOMERULAR FILTRATION RATE. ESTIMATED GFR IS NOT APPLICABLE FOR DIALYSIS PATIENTS. Specimen Performing Laboratory Blood - Line, [place] [address] * NV cerebral 4 vessel angiogram (04/11/2017 11:15 AM) Specimen Performing Laboratory GE [facility]IS Narrative FINAL REPORT DATE OF PROCEDURE: 04/11/2017 NAME: Ann Marie Kaplan SURGEON:Leandro Brown M.D. SALES DATA ANALYST: Donta Avendano M.D. PREOPERATIVE DIAGNOSIS: 1. Left Cervical Carotid Stenosis, Symptomatic. 2. Transient ischemic attack POSTOPERATIVE DIAGNOSIS: 1. Left Cervical Carotid Stenosis, Symptomatic.2. Transient ischemic attack. OPERATION: 1) Diagnostic Cerebral Angiogram. 2) Left cervical carotid stent placement with distal protection.3) Post-stent balloon angioplasty of the left internal [...] was started on low dose pressors. VESSELS STUDIED: RIGHT COMMON FEMORAL ARTERY x 2 RIGHT COMMON CAROTID ARTERY (CERVICAL x 3) RIGHT COMMON CAROTID ARTERY (CEREBRAL x 1) LEFT COMMON CAROTID ARTERY (CERVICAL x >10) LEFT COMMON CAROTID ARTERY (CEREBRAL x 3) MATERIALS EMPLOYED: *6 Stateless shuttle sheath *6 Stateless short sheath *Berenstein 2 catheter *Bentson guidewire *Terumo 0.035 LT glidewire *Synchro Standard microwire *SpyderFX 7.0 mm distal protection device *Viatrac 14 Plus 6mm x 20mm balloon *XACT 8-6 x 40mm Stent *Amplatz Wire *6 Stateless Angioseal INDICATIONS: 51-year-old female who had a [...] performed. Good location the puncture site was confirmed.A 5-Fr Berenstein 2 catheter was advanced into the descending aorta, back-bled, and flushed in the usual fashion. Using coaxial technique, the catheter was advanced into the aortic arch, and with the aid of the roadmapping, digital fluoroscopy, and careful guidewire manipulation the arteries described below were selectively catheterized and DSA angiograms were performed.After the diagnostic portion of the procedure, the [...] flush throughout the remainder the procedure. ENDOVASCULAR INTERVENTION: A total of 7500 units of heparin [...] deployed in the distal cervical internal carotid artery.Using standard technique, a 8-6 x 40mm XACT [...] distal protection device was then recaptured and removed.Post stenting, an angiogram of the cervical carotid [...] then retracted into the descending aorta, the VocoMD guidewire was then reinserted in the sheath, which was then removed, leaving the wire in place. Hemostasis was then achieved with a 6 Stateless Angio-Seal device. The patient tolerated the procedure well [...] - PA, LATERAL, OBLIQUE - CERVICAL x 3): 15% stenosis by NASCET criteria at the [...] commuting artery with filling seen in the JOB PUTTER UP AND TICKET PREPARER territory and in the vertebrobasilar system. No [...] internal carotid artery measuring 76% by NASCET criteria.The carotid bifurcation is located approximately at the level of C4 vertebral body.No stenosis of the external carotid artery origin. After carotid stenting, there no residual stenosis at the origin of the left internal carotid artery with minimal luminal indentation from the atherosclerotic plaque. LEFT COMMON CAROTID ARTERY (DSA - PA, LATERAL -CEREBRAL x 3): Normal distal cervical, petrous, cavernous and supraclinoid internal carotid artery with physiological filling of the MCA and BIA and its branches. No filling of the right BIA territory via the anterior commuting artery and no visualized posterior communicatingartery. Post stenting, there are no new vessel [...] stenosis measuring 15%. FACULTY ATTESTATION: I, Leandro Brown M.D., was present for the entirety of the procedure. I performed all aspects of the case. I interpreted the images and reported results. Signed: Leandro Brown MD Report Verified Date/Time:04/14/2017 09:23:25 Reading Location: [place] [address] Neuro Angio Reading Room Procedure Note Interface, External Ris In - 04/14/2017 9:25 AM CORRECTION OFFICER SUPERVISOR FINAL REPORT DATE OF PROCEDURE: 04/11/2017 NAME: Ann Marie Kaplan SURGEON: Leandro Brown M.D. SALES DATA ANALYST: Donta Avendano M.D. PREOPERATIVE DIAGNOSIS: 1. Left [...] was started on low dose pressors. VESSELS STUDIED: RIGHT COMMON FEMORAL ARTERY x 2 RIGHT COMMON CAROTID ARTERY (CERVICAL x 3) RIGHT COMMON CAROTID ARTERY (CEREBRAL x 1) LEFT COMMON CAROTID ARTERY (CERVICAL x >10) LEFT COMMON CAROTID ARTERY (CEREBRAL x 3) MATERIALS EMPLOYED: *6 Stateless shuttle sheath *6 Stateless short sheath *Berenstein 2 catheter *Bentson guidewire *Terumo 0.035 LT glidewire *Synchro Standard microwire *SpyderFX 7.0 mm distal protection device *Viatrac 14 Plus 6mm x 20mm balloon *XACT 8-6 x 40mm Stent *Amplatz Wire *6 Stateless Angioseal INDICATIONS: 51-year-old female who had a [...] the catheter was advanced into the aortic arch, and with the aid of the roadmapping, [...] flush throughout the remainder the procedure. ENDOVASCULAR INTERVENTION: A total of 7500 units of heparin [...] then retracted into the descending aorta, the VocoMD guidewire was then reinserted in the sheath, which was then removed, leaving the wire in place. Hemostasis was then achieved with a 6 Stateless Angio-Seal device. The patient tolerated the procedure well [...] - PA, LATERAL, OBLIQUE - CERVICAL x 3): 15% stenosis by NASCET criteria at the [...] commuting artery with filling seen in the J[employer] P[employer] UP AND TICKET PREPARER territory and in the vertebrobasilar system. No [...] COMMON CAROTID ARTERY (DSA - PA, LATERAL -CEREBRAL x 3): Normal distal cervical, petrous, cavernous [...] stenosis measuring 15%. FACULTY ATTESTATION: I, Leandro Brown M.D., was present for the entirety of the procedure. I performed all aspects of the case. I interpreted the images and reported results. Signed: Leandro Brown MD Report Verified Date/Time: 04/14/2017 09:23:25 Reading Location: [place] [address] Neuro Angio Reading Room * ECG 12 lead (04/11/2017 10:57 AM) Only the most recent of 2 results within the time period is included. Specimen Performing Laboratory [facility] Narrative Ventricular Rate 59 BPM Atrial Rate 59 BPM P-R Interval 194 ms QRS Duration 86 ms Q-T Interval 446 ms QTC Calculation(Bazett) 441 ms P Thornton 31 degrees R Thornton 17 degrees T Thornton 37 degrees Sinus bradycardia Otherwise normal ECG When compared with ECG of 11-APR-2017 07:11, No significant change was found Confirmed by MD Sosa Roberto ([id number]) on 04/11/2017 2:11:50 PM Procedure Note Interface, External Ris In - 04/11/2017 2:11 PM CORRECTION OFFICER SUPERVISOR Ventricular Rate 59 BPM Atrial Rate 59 BPM P-R Interval 194 ms QRS Duration 86 ms Q-T Interval 446 ms QTC Calculation(Bazett) 441 ms P Thornton 31 degrees R Thornton 17 degrees T Thornton 37 degrees Sinus bradycardia Otherwise normal ECG When compared with ECG of 11-APR-2017 07:11, No significant change was found Confirmed by MD Sosa Roberto ([id number]) on 04/11/2017 2:11:50 PM * POCT-P2Y12 Platelet Aggregation (04/11/2017 7:01 AM) Component Value Ref Range POC-P2Y12 Plt Agg 171 PRU Specimen Performing Laboratory Blood [address] [address] Narrative RANGE INFORMATION: PRU reference range is 194-418. Post Drug Results: Lower PRU levels are associated with expected antiplatelet effect. Values may be below the stated reference range above. The post-drug PRU values reported in the [employer] [id number] package insert are [id number]. * POCT-Aspirin Platelet Aggregation (04/11/2017 7:01 AM) Component Value Ref Range POC-Aspirin Plt Agg 411 ARU Specimen Performing Laboratory Blood [address] [address] Narrative RANGE INFORMATION: 350-549 ARU Therapeutic range for platelet function. 550-700 ARU Non-Therapeutic range for platelet function. * PT/aPTT (04/11/2017 7:01 AM) Component Value Ref Range Protime 12.9 11.7 - 14.7 seconds INR 1.0 <=5.9 PTT 34.5 22.5 - 36.0 seconds Specimen Performing Laboratory Blood [address] [address] Narrative RECOMMENDED COUMADIN/WARFARIN INR THERAPY RANGES STANDARD DOSE: 2.0 - 3.0 Includes: PROPHYLAXIS for venous thrombosis, systemic embolization; TREATMENT for venous thrombosis and/or pulmonary embolus. HIGH RISK: Target INR is 2.5-3.5 for patients with mechanical heart valves. after 10/01/2016
[2017-10-02 11:04] LABS: WBC,FECAL (FECAL LACTOFERRIN) NEGATIVE (NEGATIVE)
[2017-10-02 12:41] LABS: C DIFFICILE TOXIN A&B AMP PROB **POSITIVE** (NEGATIVE)
--- NOTE | 2017-10-02 13:58 | Operative Report ---
DATE OF PROCEDURE: October 02, 2017 REFERRING PHYSICIAN: Dr. Alba Bansal. PROCEDURE PERFORMED: 1. Esophagogastroduodenoscopy with esophageal dilatation and biopsies. 2. Colonoscopy with polypectomy and biopsies. INDICATIONS FOR ESOPHAGOGASTRODUODENOSCOPY: Dysphagia, history of heartburn indigestion. INDICATIONS FOR COLONOSCOPY: Colorectal cancer screening, personal history of colon polyps, lower abdominal pain, diarrhea. MEDICATION: Patient was done under MAC. Please see anesthesiologist's note. PROCEDURE: With the patient in the left lateral decubitus position, the flexible fiberoptic Olympus gastroscope was introduced into the esophagus under direct visualization without any difficulty. There was some patchy erythema noted in the distal esophagus. There was a mild stricture noted at the GE junction, and that was dilated to a size 52-Burm[place] Vargas. A minute tongue of velvety red mucosa was noted to extend proximally from the GE junction, and that was biopsied to rule out Schmitz's. The scope was then advanced with ease into the stomach, and mucosa overlying the antrum and the body revealed some diffuse erythema and low-grade to moderate edema, and biopsies were obtained and sent to stain for H. pylori. Pylorus appeared to be of normal contour and shape, was intubated with ease, and the scope was advanced all the way to the 2nd portion of the duodenum. Biopsies were obtained from the proximal 2nd portion to rule out sprue considering patient's history of diarrhea. Mucosa overlying the duodenal bulb appeared to be within normal limits. The scope was then withdrawn back into the stomach and retroflexed, and the mucosa overlying the fundus and the cardia appeared to be within normal limits. The scope was then straightened out. The scope was subsequently withdrawn. Patient tolerated the procedure well. IMPRESSION: 1. Distal esophagitis. 2. Esophageal stricture at gastroesophageal junction dilated to a size 52-Burm[place] Vargas. 3. Rule out Schmitz's esophagus. 4. Gastritis biopsied. Biopsies sent to stain for H. pylori. 5. Rule out sprue. PLAN: Follow up histology. Initiate Nexium 40 mg 1 p.o. q.a.m. a.c. Patient was then turned around and after adequate lubrication of the anal canal, a flexible fiberoptic Olympus colonoscope was inserted into the rectum with ease and advanced all the way to the cecum. Mucosa overlying the cecum appeared to be within normal limits. The ileocecal valve was intubated, and the scope was advanced into the terminal ileum. Biopsies were obtained. The scope was then withdrawn back into the colon. It was then withdrawn slowly. A minute polyp was noted in the proximal ascending colon, and that was hot biopsied. There was some patchy erythema noted in the ascending and the transverse colon. One polyp was hot biopsied from the transverse colon, and mild diffuse inflammatory changes were noted in the left colon and random biopsies were obtained. One polyp was snared from the descending colon. Some diverticular disease was noted in the sigmoid colon. The rectum also manifested some mild patchy inflammatory changes. The scope was then retroflexed into the distal rectum, and the area around the dentate line appeared to be within normal limits. The scope was then straightened out. It was subsequently withdrawn after securing an adequate stool specimen that was sent for the appropriate stool studies. Patient tolerated procedure well. IMPRESSION: 1. Ascending colon polyp hot biopsied. 2. Transverse colon polyp hot biopsied. 3. Descending colon polyp snared. 4. Diverticulosis. 5. Low-grade colitis. PLAN: Follow up histology. Follow up stool studies. Initiate Bentyl 10 mg 1 p.o. t.i.d. VSL#3 DS one p.o. daily. Patient might benefit from a followup colonoscopy in 3 years. Job#: [id number] EV cc:ALBA BANSAL MD
== END | disposition home or self-care (01) ==
LOC: OR 06:03
PROVIDERS: ATTEND Internal Medicine Gastroenterology
DX: Z12.11 Encounter for screening for malignant neoplasm of colon (principal); D12.4 Benign neoplasm of descending colon; K29.70 Gastritis, unspecified, without bleeding; K22.2 Esophageal obstruction; K25.9 Gastric ulcer, unspecified as acute or chronic, without hemorrhage or perforation; K20.9 Esophagitis, unspecified; K52.89 Other specified noninfective gastroenteritis and colitis; K22.8 Other specified diseases of esophagus; K57.30 Diverticulosis of large intestine without perforation or abscess without bleeding; R93.5 Abnormal findings on diagnostic imaging of other abdominal regions, including retroperitoneum; K85.90 Acute pancreatitis without necrosis or infection, unspecified; K76.0 Fatty (change of) liver, not elsewhere classified; I69.398 Other sequelae of cerebral infarction; R53.1 Weakness; E11.9 Type 2 diabetes mellitus without complications; M54.9 Dorsalgia, unspecified; J44.9 Chronic obstructive pulmonary disease, unspecified; G47.33 Obstructive sleep apnea (adult) (pediatric); I25.10 Atherosclerotic heart disease of native coronary artery without angina pectoris; I10 Essential (primary) hypertension; E78.5 Hyperlipidemia, unspecified; M10.9 Gout, unspecified; F32.9 Major depressive disorder, single episode, unspecified; F41.9 Anxiety disorder, unspecified; F17.210 Nicotine dependence, cigarettes, uncomplicated; Z01.810 Encounter for preprocedural cardiovascular examination; Z01.812 Encounter for preprocedural laboratory examination; Z01.818 Encounter for other preprocedural examination; Z79.82 Long term (current) use of aspirin; Z79.02 Long term (current) use of antithrombotics/antiplatelets; Z68.38 Body mass index [BMI] 38.0-38.9, adult; Z79.4 Long term (current) use of insulin; Z95.5 Presence of coronary angioplasty implant and graft; Z80.0 Family history of malignant neoplasm of digestive organs
CPT/HCPCS: 36415 ×2; 43239; 43450; 45384; 45385; 71046; 82948; 83630; 83993; 85025; 87045; 87177; 87328; 87493; 93005; J1980; J2001; J2250; 45378; 45380

== ENCOUNTER → 2017-10-13 | Outpatient (CLI) | payer OTHER ==
[~2017-10-13] MED LIST changes: -FENTANYL CITRATE/PF 100MCG/2 ML INJ ONE; -HYOSCYAMINE SULFATE 0.5 MG/ML AMP ONE; -LIDOCAINE HCL 2% LOCAL INJ 5 ML SDV VIAL INJ ONE; -MIDAZOLAM HCL 2 MG/2 ML VIAL ONE; -PROPOFOL IV EMULSION 10 MG/ML 50 ML VIAL ONE
== END | disposition home or self-care (01) ==
LOC: CARD 09:12
PROVIDERS: ATTEND Neurological Surgery
DX: I65.22 Occlusion and stenosis of left carotid artery (principal); Z95.828 Presence of other vascular implants and grafts
CPT/HCPCS: 93880

== ENCOUNTER → 2017-11-17 | Outpatient (CLI) | payer OTHER | LOC: RESP 10:16 | PROVIDERS: ATTEND Internal Medicine Critical Care Medicine | DX: J98.11 Atelectasis (principal); J30.9 Allergic rhinitis, unspecified; J44.9 Chronic obstructive pulmonary disease, unspecified; R91.1 Solitary pulmonary nodule; G47.33 Obstructive sleep apnea (adult) (pediatric) | CPT/HCPCS: 94060; 94727; 94729 ==